=== PATIENT | male | born 1960 | race Caucasian/White ===

== ENCOUNTER 2020-11-04 02:50 | Inpatient (IN) | payer BC, SELFPAY ==
[2020-11-04] VITALS (14 sets, daily range): BP systolic 102–149; BP diastolic 64–87; PULSE 81–108; RESP 17–30; TEMP 36.2–37.2; O2SAT 89–98; BMI 32.1
--- NOTE | 2020-11-04 02:53 | CTR_ITS ---
PROCEDURE INFORMATION: Exam: CT Angiography Chest With Contrast Exam date and time: 11/04/2020 3:05 AM Age: 60 years old Clinical indication: Other: None; Abdominal pain; Localized; Right lower quadrant (rlq); Shortness of breath; Prior surgery; Surgery type: Lumbar; Patient HX: SOB with hypoxia. Lower and right sided abd pain. ; Additional info: Rlq pain TECHNIQUE: Imaging protocol: Computed tomographic angiography of the chest with contrast. 3D rendering (Not supervised by radiologist): MIP and/or 3D reconstructed images were created by the technologist. Radiation optimization: All CT scans at this facility use at least one of these dose optimization techniques: automated exposure control; mA and/or kV adjustment per patient size (includes targeted exams where dose is matched to clinical indication); or iterative reconstruction. Contrast material: VISI 320; Contrast volume: 95 ml; Contrast route: INTRAVENOUS (IV); COMPARISON: CR (CHEST, ) 11/04/2020 3:24 AM RADIATION DOSE METRICS: Total DLP (mGy-cm): 1722.16 FINDINGS: Pulmonary arteries: Normal. No pulmonary emboli. Aorta: Unremarkable. No aortic aneurysm. No aortic dissection. Lungs: Bilateral scattered ground-glass lung infiltrates are present. Pleural spaces: Unremarkable. No pneumothorax. No pleural effusion. Heart: Unremarkable. No cardiomegaly. No pericardial effusion. Lymph nodes: Unremarkable. No enlarged lymph nodes. Bones/joints: Degenerative changes are present. No acute fracture. Soft tissues: Unremarkable. IMPRESSION: 1. Negative for pulmonary embolism. Negative for aortic aneurysm or dissection. 2. Bilateral scattered ground-glass lung infiltrates are present. COVID-19 testing and follow-up is suggested. PROCEDURE INFORMATION: Exam: CT Abdomen And Pelvis With Contrast Exam date and time: 11/04/2020 3:05 AM Age: 60 years old Clinical indication: Other: None; Abdominal pain; Localized; Right lower quadrant (rlq); Shortness of breath; Prior surgery; Surgery type: Lumbar; Patient HX: SOB with hypoxia. Lower and right sided abd pain. ; Additional info: Rlq pain TECHNIQUE: Imaging protocol: Computed tomography of the abdomen and pelvis with contrast. Radiation optimization: All CT scans at this facility use at least one of these dose optimization techniques: automated exposure control; mA and/or kV adjustment per patient size (includes targeted exams where dose is matched to clinical indication); or iterative reconstruction. Contrast material: VISI 320; Contrast volume: 95 ml; Contrast route: INTRAVENOUS (IV); COMPARISON: CR (CHEST, ) 11/04/2020 3:24 AM RADIATION DOSE METRICS: Total DLP (mGy-cm): 1722.16 FINDINGS: Liver: Mild fatty change is present. No mass. Gallbladder and bile ducts: Normal. No calcified stones. No ductal dilation. Pancreas: Normal. No ductal dilation. Spleen: Normal. No splenomegaly. Adrenal glands: Normal. No mass. Kidneys and ureters: Normal. No hydronephrosis. Stomach and bowel: Unremarkable. No obstruction. Diverticulosis of the sigmoid colon is seen without diverticulitis. Appendix: No evidence of appendicitis. Intraperitoneal space: Unremarkable. No free air. No significant fluid collection. Vasculature: Calcifications are seen. No abdominal aortic aneurysm. Lymph nodes: Unremarkable. No enlarged lymph nodes. Urinary bladder: Unremarkable as visualized. Reproductive: Unremarkable as visualized. Bones/joints: Degenerative changes and postop changes are present. No acute fracture. Soft tissues: Unremarkable. CT/CT angio chest w abd pel w con IMPRESSION: 1. No acute findings. 2. Mild fatty change is present liver. 3. Diverticulosis of the sigmoid colon is present without diverticulitis. 4. Postop changes are seen in the lower lumbar spine . Radiation Dose CTDIVOL = (mGy): DLP = 1722.16 (mGy-cm)
[2020-11-04 03:06] LABS: Basophils % 0.3 %; Eosinophils % 0.3 %; Hematocrit 50.9 % (42.0-52.0); Hemoglobin 16.4 g/dL (11.7-16.6); Lymphocytes # 1.5 10^3/uL (0.8-4.8); Lymphocytes % 19.7 %; Mean Corpuscular HGB Conc 32.2 g/dL (30.0-36.0); Mean Corpuscular Hemoglobin 28.3 pg (28.0-34.0); Mean Corpuscular Volume 87.8 fL (80-94); Mean Platelet Volume 9.9 fL (7.4-10.4); Monocytes % 12.7 %; Neutrophils # 5.17 10^3/uL (1.8-7.7); Neutrophils % 66.5 %; Nucleated Red Blood Cells % 0 %; Platelet Count 161 10^3/cmm (130-400); Red Cell Distribution Width 13.9 % (12.1-15.1); White Blood Count 7.8 10^3/uL (4.0-10.0)
[2020-11-04] MEDS: sodium chloride 0.9% 1,000 ML 999 ML IV (03:13)
[2020-11-04] MEDS: HYDROmorphone 1 mg/mL INJ 1 mL IVP (03:16)
[2020-11-04] MEDS: ketorolac 30 mg/mL INJ IVP (03:16)
--- NOTE | 2020-11-04 03:22 | XRR_ITS ---
PROCEDURE INFORMATION: Exam: XR Chest Exam date and time: 11/04/2020 3:27 AM Age: 60 years old Clinical indication: Shortness of breath; Patient HX: SOB TECHNIQUE: Imaging protocol: XR of the chest Views: 1 view. COMPARISON: No relevant prior studies available. FINDINGS: Heterogenous infiltrates are seen in both lungs obscuring the left heart border. Small pleural effusions are seen, larger on the left. XR/XR chest 1V portable [id number] IMPRESSION: Bilateral heterogenous lung infiltrates are seen. COVID-19 testing and follow-up is suggested to see clearance.
[2020-11-04 03:24] LABS: Alanine Aminotransferase 25 U/L (0-41); Alkaline Phosphatase 92 IU/L (40-130); Anion Gap 16.2 (5-19); Aspartate Amino Transferase 19 U/L (0-40); Blood Urea Nitrogen 23 mg/dL (8-23); C Reactive Protein 102.6 mg/L (0.0-4.9); Calcium 8.5 mg/dL (8.5-10.5); Carbon Dioxide 25 mmol/L (22-29); Chloride 95 mmol/L (98-107); Globulin 3.6 g/dL (1.3-4.6); Glomerular Filtration Rate 61.3 mL/min (90-130); Glucose 154 mg/dL (65-115); Lipase 63 U/L (13-60); Osmolality Calculated 281 mOsm/kg (285-295); Potassium 4.2 mmol/L (3.5-5.1); Sodium 132 mmol/L (136-145); Total Bilirubin 0.3 mg/dL (0.15-1.2); Total Protein 7.6 g/dL (6.6-8.7)
[2020-11-04 03:25] LABS: Lactate (Lactic Acid level) 2.1 mmol/L (0.5-2.2)
--- NOTE | 2020-11-04 03:28 | W.ED.ABDPA2 ---
HPI - Abdominal Pain General: Chief Complaint: Abdominal Pain Stated Complaint: abd pain Time Seen by Provider: 11/04/20 02:52 History of Present Illness: HPI narrative: 60 -year-old gentleman with a history of right lower quadrant pain for last 3 to 4 days has been nauseated, but has not vomited. No hannah diarrhea, no blood in the stool. No fever. No overt belly surgery history. MD elicited complaint: abdominal pain Pertinent past history: kidney stones Onset (ago): day(s) Pain Consistency: intermittent Location: RLQ, LLQ and Other Severity: moderate Quality: cramping and stabbing Radiation: none Migration to: no migration Exacerbating factors: nothing Associated Symptoms: Denies coffee ground emesis, diarrhea, fever(s) and hematemesis Review of Systems Const: Denies: fever(s) Card: Denies: chest pain or palpitations Resp: Reports: dyspnea, productive cough and non-productive cough; Denies: wheezing GI: Denies: hematemesis, coffee ground emesis or diarrhea : Denies: flank pain or difficulty urinating Neuro: Denies: headache(s) Physical Exam Const: GENERAL APPEARANCE: well developed and ill appearing ORIENTATION/CONSCIOUSNESS: Yes oriented to person, Yes oriented to place and Yes oriented to time HENMT: COMMON NORMALS: normocephalic, external ears normal and Normal external nose present HEAD & SCALP: normocephalic FACE & SINUS: normal facial exam NOSE: Normal external nose present and No nasal discharge present EXTERNAL EAR: Yes external ears normal MOUTH: tongue normal TEETH & GINGIVA: no abnormal tooth and associated gingiva THROAT: posterior oropharynx normal; no peritonsillar mass Eye: COMMON NORMALS: EOMs intact bilaterally and conjunctivae normal EYELID: eyelids normal CONJUNCTIVA: Yes conjunctivae normal Neck/C-Spine: GENERAL: No tracheal deviation Chest: COMMONS NORMALS: normal inspection of the chest CHEST: No tenderness Resp: COMMON NORMALS: clear to auscultation bilaterally EFFORT & INSPECTION: Yes tachypneic, Yes respiratory distress, No retractions, Yes uses accessory muscles and No tracheal deviation AUSCULTATION: clear to auscultation bilaterally, no rhonchi, no wheezes and diminished lung sounds Cardio: COMMON NORMALS: regular rhythm RATE: tachycardic RHYTHM: regular rhythm HEART SOUNDS: no murmurs PERIPHERAL PULSES: radial pulses present GI: INSPECTION: No abdominal distension AUSCULTATION: No Hyperactive bowel sounds present and No Hypoactive bowel sounds present PALPATION: Yes Tenderness to palpation present (GI) Details: RLQ, Yes Guarding due to palpation present (GI), No Rigid due to palpation and Yes Abdominal wall crepitus present PERCUSSION: no dullness to percussion and no tympanic to percussion : COMMON NORMALS: Yes no CVA tenderness BLADDER/KIDNEY EXAM: Yes no CVA tenderness Back/Pelvis: COMMON NORMALS: no CVA tenderness Neuro: SENSORIUM/ORIENTATION: Yes oriented to person, Yes oriented to place and Yes oriented to time Psych: COMMON NORMALS: mental status grossly normal Skin: COMMON NORMALS: no rashes or lesions noted GENERAL SKIN EXAM: no rashes or lesions noted Course Consultations: Consultation #1: willy Vital Signs: Vital signs: Vital Signs Temperature 98.9 F 11/04/20 02:51 Pulse Rate 90 11/04/20 04:39 Respiratory Rate 19 H 11/04/20 04:39 Blood Pressure 120/74 11/04/20 04:39 Pulse Oximetry 92 11/04/20 04:39 MDM - Abdominal Pain MDM Narrative: Medical decision making narrative: 60-year-old gentleman complains mainly of right lower quadrant and more diffuse belly pain, he is also been coughing and congested. He may or may not have had a fever at home. He denies being short of breath. Despite this, he has a significant oxygen demand satting 92% on 2 L nasal cannula. His chest x-ray revealed interstitial infiltrates and enlarged heart. Because of this, CTA was ordered with follow-through to the abdomen and pelvis. His white blood count is 7.8. Hemoglobin 16. His CRP is significantly elevated. Other laboratory is essentially benign. CTA shows no pulmonary embolus, but groundglass infiltrates are present. His rapid Covid is pending. Belly shows no significant acute findings. Patient returned from CT scan, more short of breath. He is placed on 4 L. He is mildly hypotensive at 92/52. He does not usually use oxygen. He will be admitted. Patient is COVID-19 positive. Lab Data: Labs: Lab Results 11/04/20 11/04/20 11/04/20 Range/Units 02:57 02:57 02:57 WBC 7.8 (4.0-10.0) 10^3/ uL RBC 5.80 H (4.1-5.3) 10^6/u L Hgb 16.4 (11.7-16.6) g/dL Hct 50.9 (42.0-52.0) % MCV 87.8 (80-94) fL MCH 28.3 (28.0-34.0) pg MCHC 32.2 (30.0-36.0) g/dL RDW 13.9 (12.1-15.1) % Plt Count 161 (130-400) 10^3/c mm MPV 9.9 (7.4-10.4) fL Neut % (Auto) 66.5 % Lymph % (Auto) 19.7 % [place] % (Auto) 12.7 % Eos % (Auto) 0.3 % Baso % (Auto) 0.3 % Neut # (Auto) 5.17 (1.8-7.7) 10^3/u L Lymph # (Auto) 1.5 (0.8-4.8) 10^3/u L [place] # (Auto) 1.0 H (0.2-0.9) 10^3/u L Eos # (Auto) 0.0 (0.0-0.8) 10^3/u L Baso # (Auto) 0.0 (0.0-0.1) 10^3/u L Nucleated RBC % (a uto) 0 % Nucleated RBCs # 0.0 /100WBC Specimen Type Sample Site ABG pH (7.35-7.45) ABG pCO2 (35-45) mmHg ABG pO2 (80.0-100.0) mmH g ABG HCO3 (22-26) mmol/L ABG Base Excess (-2.0-2.0) mmol/ L Mohinder Test Hematocrit (42-52) % O2 Delivery Device O2 Liters/Min % Operations Support Analyst ID Sodium 132 L (136-145) mmol/L Potassium 4.2 (3.5-5.1) mmol/L Chloride 95 L (98-107) mmol/L Carbon Dioxide 25 (22-29) mmol/L Anion Gap 16.2 (5-19) BUN 23 (8-23) mg/dL Creatinine 1.2 (0.7-1.2) mg/dL GFR Calculation 61.3 L (90-130) mL/min Glucose 154 H (65-115) mg/dL Calculated Osmolal ity 281 L (285-295) mOsm/k g Lactate 2.1 (0.5-2.2) mmol/L Calcium 8.5 (8.5-10.5) mg/dL Total Bilirubin 0.3 (0.15-1.2) mg/dL AST 19 (0-40) U/L ALT 25 (0-41) U/L Alkaline Phosphata se 92 (40-130) IU/L Troponin T Baselin e (0-15) ng/L C-Reactive Protein 102.6 H (0.0-4.9) mg/L NT-Pro-B Natriuret Pep (0-125) pg/mL Total Protein 7.6 (6.6-8.7) g/dL Albumin 4.0 (3.5-5.2) g/dL Globulin 3.6 (1.3-4.6) g/dL Lipase 63 H (13-60) U/L Procalcitonin (0-0.5) ng/mL Urine Color (Yellow) Urine Appearance (CLEAR) Urine pH (5-7) Ur Specific Gravit y (1.005-1.030) Urine Protein (Negative) Urine Glucose (UA) (Normal) Urine Ketones (Negative) Urine Blood (Negative) Urine Nitrate (Negative) Urine Bilirubin (Negative) Urine Urobilinogen (Negative) mg/dL Ur Leukocyte Kandis ase (Negative) Urine RBC (0-2) /hpf Urine WBC (0-5) /hpf Ur Squamous Epith Cells (0-5) /hpf Amorphous Sediment Urine Bacteria (NONE) /hpf Hyaline Casts /lpf SARS-CoV-2 Ag (Rap id) (Negative) 11/04/20 11/04/20 11/04/20 Range/Units 02:57 02:57 04:41 WBC (4.0-10.0) 10^3/ uL RBC (4.1-5.3) 10^6/u L Hgb (11.7-16.6) g/dL Hct (42.0-52.0) % MCV (80-94) fL MCH (28.0-34.0) pg MCHC (30.0-36.0) g/dL RDW (12.1-15.1) % Plt Count (130-400) 10^3/c mm MPV (7.4-10.4) fL Neut % (Auto) % Lymph % (Auto) % [place] % (Auto) % Eos % (Auto) % Baso % (Auto) % Neut # (Auto) (1.8-7.7) 10^3/u L Lymph # (Auto) (0.8-4.8) 10^3/u L [place] # (Auto) (0.2-0.9) 10^3/u L Eos # (Auto) (0.0-0.8) 10^3/u L Baso # (Auto) (0.0-0.1) 10^3/u L Nucleated RBC % (a uto) % Nucleated RBCs # /100WBC Specimen Type Sample Site ABG pH (7.35-7.45) ABG pCO2 (35-45) mmHg ABG pO2 (80.0-100.0) mmH g ABG HCO3 (22-26) mmol/L ABG Base Excess (-2.0-2.0) mmol/ L Mohinder Test Hematocrit (42-52) % O2 Delivery Device O2 Liters/Min % Operations Support Analyst ID Sodium (136-145) mmol/L Potassium (3.5-5.1) mmol/L Chloride (98-107) mmol/L Carbon Dioxide (22-29) mmol/L Anion Gap (5-19) BUN (8-23) mg/dL Creatinine (0.7-1.2) mg/dL GFR Calculation (90-130) mL/min Glucose (65-115) mg/dL Calculated Osmolal ity (285-295) mOsm/k g Lactate (0.5-2.2) mmol/L Calcium (8.5-10.5) mg/dL Total Bilirubin (0.15-1.2) mg/dL AST (0-40) U/L ALT (0-41) U/L Alkaline Phosphata se (40-130) IU/L Troponin T Baselin e 15 (0-15) ng/L C-Reactive Protein (0.0-4.9) mg/L NT-Pro-B Natriuret Pep 19 (0-125) pg/mL Total Protein (6.6-8.7) g/dL Albumin (3.5-5.2) g/dL Globulin (1.3-4.6) g/dL Lipase (13-60) U/L Procalcitonin 0.16 (0-0.5) ng/mL Urine Color Yellow (Yellow) Urine Appearance Clear (CLEAR) Urine pH 5 (5-7) Ur Specific Gravit y 1.020 (1.005-1.030) Urine Protein Trace (Negative) Urine Glucose (UA) 4+ H (Normal) Urine Ketones Negative (Negative) Urine Blood 2+ H (Negative) Urine Nitrate Negative (Negative) Urine Bilirubin Neg (Negative) Urine Urobilinogen Norm (Negative) mg/dL Ur Leukocyte Kandis ase Negative (Negative) Urine RBC 5-10 H (0-2) /hpf Urine WBC 0-4 H (0-5) /hpf Ur Squamous Epith Cells 0-4 H (0-5) /hpf Amorphous Sediment Not Reportable Urine Bacteria Trace (NONE) /hpf Hyaline Casts 0-4 H /lpf SARS-CoV-2 Ag (Rap id) (Negative) 11/04/20 11/04/20 Range/Units 04:51 05:43 WBC (4.0-10.0) 10^3/ uL RBC (4.1-5.3) 10^6/u L Hgb (11.7-16.6) g/dL Hct (42.0-52.0) % MCV (80-94) fL MCH (28.0-34.0) pg MCHC (30.0-36.0) g/dL RDW (12.1-15.1) % Plt Count (130-400) 10^3/c mm MPV (7.4-10.4) fL Neut % (Auto) % Lymph % (Auto) % [place] % (Auto) % Eos % (Auto) % Baso % (Auto) % Neut # (Auto) (1.8-7.7) 10^3/u L Lymph # (Auto) (0.8-4.8) 10^3/u L [place] # (Auto) (0.2-0.9) 10^3/u L Eos # (Auto) (0.0-0.8) 10^3/u L Baso # (Auto) (0.0-0.1) 10^3/u L Nucleated RBC % (a uto) % Nucleated RBCs # /100WBC Specimen Type Arterial Sample Site Brachial, right ABG pH 7.37 (7.35-7.45) ABG pCO2 38.8 (35-45) mmHg ABG pO2 99.9 (80.0-100.0) mmH g ABG HCO3 22.2 (22-26) mmol/L ABG Base Excess -2.8 L (-2.0-2.0) mmol/ L Mohinder Test N/a Hematocrit 45.1 (42-52) % O2 Delivery Device Nc O2 Liters/Min 4.0 % Operations Support Analyst ID Harkr Sodium (136-145) mmol/L Potassium (3.5-5.1) mmol/L Chloride (98-107) mmol/L Carbon Dioxide (22-29) mmol/L Anion Gap (5-19) BUN (8-23) mg/dL Creatinine (0.7-1.2) mg/dL GFR Calculation (90-130) mL/min Glucose (65-115) mg/dL Calculated Osmolal ity (285-295) mOsm/k g Lactate (0.5-2.2) mmol/L Calcium (8.5-10.5) mg/dL Total Bilirubin (0.15-1.2) mg/dL AST (0-40) U/L ALT (0-41) U/L Alkaline Phosphata se (40-130) IU/L Troponin T Baselin e (0-15) ng/L C-Reactive Protein (0.0-4.9) mg/L NT-Pro-B Natriuret Pep (0-125) pg/mL Total Protein (6.6-8.7) g/dL Albumin (3.5-5.2) g/dL Globulin (1.3-4.6) g/dL Lipase (13-60) U/L Procalcitonin (0-0.5) ng/mL Urine Color (Yellow) Urine Appearance (CLEAR) Urine pH (5-7) Ur Specific Gravit y (1.005-1.030) Urine Protein (Negative) Urine Glucose (UA) (Normal) Urine Ketones (Negative) Urine Blood (Negative) Urine Nitrate (Negative) Urine Bilirubin (Negative) Urine Urobilinogen (Negative) mg/dL Ur Leukocyte Kandis ase (Negative) Urine RBC (0-2) /hpf Urine WBC (0-5) /hpf Ur Squamous Epith Cells (0-5) /hpf Amorphous Sediment Urine Bacteria (NONE) /hpf Hyaline Casts /lpf SARS-CoV-2 Ag (Rap id) Positive H (Negative) Discharge Plan Discharge Patient Disposition: Admitted As Inpatient Clinical Impression: COVID-19 Respiratory failure with hypoxia Qualifiers: Chronicity: acute Qualified Code(s): J96.01 - Acute respiratory failure with hypoxia Condition: Stable Coding Level of Care Code ED French Folder for g Fwd Exam Comprehensive
--- NOTE | 2020-11-04 03:35 | ECG_ITS ---
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 Measurements Intervals [place] Rate: 90 P: 29 NE: 178 QRS: 90 QRSD: 91 T: 61 QT: 337 QTc: 413 Interpretive Statements SINUS RHYTHM POSSIBLE ANTERIOR MYOCARDIAL INFARCTION , PROBABLY OLD [30 ms Q WAVE IN V3/V4, OR R < 0.2 mV IN V4] No previous ECG available for comparison Electronically Signed On 11-06-2020 18:57:12 AUTOMOBILE GLASS TECHNICIAN by Irineo Chance M.D. [id number] f
[2020-11-04] MEDS: iodixanol 320 mg/mL 100mL Btl IV (03:43)
[2020-11-04] MEDS: HYDROmorphone 1 mg/mL INJ 1 mL 0.5 MG IVP (04:54)
[2020-11-04] MEDS: dexamethasone 10 mg/mL INJ IVP (04:55)
[2020-11-04 05:02] LABS: Troponin(5th) Baseline 15 ng/L (0-15)
[2020-11-04 05:12] LABS: NT Pro B Type Natriuretic Pept 19 pg/mL (0-125); Procalcitonin 0.16 ng/mL (0-0.5)
[2020-11-04 05:12] LABS: Add Urine Microscopic? YES; Bilirubin Urine Neg (Negative); Blood Urine 2+ (Negative); Glucose Urine UA 4+ (Normal); Ketones Urine Negative (Negative); Leukocyte Esterase Urine Negative (Negative); Nitrate Urine Negative (Negative); Protein Urine Trace (Negative); Urine Appearance Clear (CLEAR); Urine Color Yellow (Yellow); Urobilinogen Urine Norm (Negative); pH Urine 5 (5-7)
[2020-11-04 05:13] LABS: WBC Urine 0-4 /hpf (0-5)
[2020-11-04 05:14] LABS: Add Urine Culture? No; Bacteria Urine TRACE /hpf; Hyaline Casts Urine 0-4 /lpf; Squamous Epithelial Cell Urine 0-4 /hpf (0-5)
--- NOTE | 2020-11-04 05:35 | ECG_ITS ---
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 Measurements Intervals [place] Rate: 77 P: 40 MD: 189 QRS: 85 QRSD: 93 T: 59 QT: 361 QTc: 410 Interpretive Statements SINUS RHYTHM Compared to ECG 11/04/2020 03:55:44 Myocardial infarct finding no longer present Electronically Signed On 11-06-2020 19:05:02 AUTO DAMAGE ADJUSTER by Irineo Chance M.D. [id number] f
--- NOTE | 2020-11-04 05:36 | PM.HP ---
Providers/Chief Complaint Chief Complaint: abd pain History of Present Illness dolores pearl is a 60 year old male who has an past medical history presented today with chief complaint of abdominal pain. Patient is stating that for last few days he has been experiencing constipation, for which she has seen PCP who recommended stool softeners, now he was experiencing loose stools for quite some days and his abdominal pain was getting worse vascular he decided to come to the hospital. He is denying fever, chest pain, productive cough however endorsing shortness of breath at rest and on exertion. He lives with his who does not have similar symptoms. He does not smoke or drink alcohol. Diagnostics in the ER revealed acute hypoxic respiratory failure requiring 4 L nasal cannula to keep O2 saturation 92%, no active chest pain, CBC unremarkable, BMP without significant acute abnormalities, high CRP noted, CTA ruled out PE, chest imaging showed bilateral groundglass opacities, CT abdomen revealed diverticulosis without any infectious cause, ABGs pending When I evaluated him he was eating sandwich was saturating well on 4 L nasal cannula had mild conversational dyspnea. Food was not aggravating his pain. Review of Systems Const: Reports: body aches and fatigue; Denies: fever(s) Eyes: Denies: change in vision ENMT: Denies: throat pain Card: Denies: chest pain Resp: Reports: dyspnea GI: Reports: abdominal pain and constipation; Denies: nausea or vomiting : Denies: flank pain Musc: Denies: neck pain Skin/Breast: Denies: rash Neuro: Denies: headache(s) Psych: Denies: anxiety Endo: Denies: polyuria Christopher/Lymph: Denies: easy bruising All/Imm: Denies: urticaria Medications/Allergies Allergies Allergy/AdvReac Type Severity Reaction Status Date / Time No Known Allergies Allergy Verified 11/04/20 02:55 PFSH Acute PFSH: Medical History Dyslipidemia Hypertension Normal colonoscopy Type 2 diabetes mellitus Surgical History Previous back surgery Family History Other Family history non-contributory Social History Smoking and tobacco status: never smoked Alcohol intake: never Substance/Drug Use: never Household members: spouse Housing: House Vitals/I&O/Wt Last Vital Signs Temp 98.9 F 11/04/20 02:51 Pulse 90 11/04/20 04:39 Resp 19 H 11/04/20 04:39 BP 120/74 11/04/20 04:39 Pulse Ox 92 11/04/20 04:39 11/03/20 11/03/20 11/04/20 14:59 22:59 06:59 Intake Total 1000 / 1000 Balance 1000 / 1000 Weight last 48 hrs Weight 107.501 kg Physical Exam Narrative: EXAM NARRATIVE: Middle-age male currently saturating well on 4 L nasal cannula No active chest pain or acute shortness of breath Appears stated age, He was eating sandwich when I entered the room S1, S2 no murmur appreciated no signs of heart failure Bilateral breath sounds with mild crackles at the bases Abdomen soft bowel sounds hyperactive No extremity no edema No neurological deficit noted GCS 15 awake alert oriented x3 No joint pain or swelling Appropriate mood and affect EOMI, PERRLA Data : 11/04/20 02:57 11/04/20 02:57 A&P Assessment and plan (1) COVID-19: Acute hypoxic respiratory failure due to COVID-19 pneumonia Groundglass opacities, procalcitonin unremarkable, Start him on Decadron and remdesivir Albuterol treatment Recheck inflammatory markers tomorrow for prognostication COVID-19 isolation Status: Acute (2) Respiratory failure with hypoxia: PE ruled out, secondary to COVID-19, management as mentioned above Check BNP, no active chest pain, Status: Acute Qualifiers: Chronicity: acute Qualified Code(s): J96.01 - Acute respiratory failure with hypoxia Additional A&P Information History of hypertension: Currently normotensive, monitor blood pressure for now Type 2 diabetes: We will keep him on moderate sliding scale along consistent carb diet Full code Consistent carb diet DVT prophylaxis Attestations Medical Necessity Statement*: Anticipating stay in the hospital course more than 2 midnights for acute hypoxic respiratory failure, COVID-19 Time Spent in Patient Care: (>than 50% of time spent in counselling and/or direct pt care on unit). 35 Coding Level of Care Code Acute Sales Support Representative for [facility] Fwd Diagnoses COVID-19 U07.1 Respiratory failure with hypoxia J96.01 Chronicity: acute
[2020-11-04 05:40] LABS: SARS Covid-2 Antigen Positive (Negative)
[2020-11-04 05:53] LABS: ABG PCO2 38.8 mmHg (35-45); ABG PH Result 7.37 (7.35-7.45); Arterial Blood Gas Hematocrit 45.1 % (42-52); Base Excess ABG -2.8 mmol/L (-2.0-2.0); Blood Gas Operator Identificat HARKR; Blood Gas Sample Site Brachial, right; Blood Gas Sample Type Arterial; HCO3 ABG 22.2 mmol/L (22-26); Oxygen Device NC; PO2 ABG 99.9 mmHg (80.0-100.0)
[2020-11-04 07:17] LABS: Glucose Point of Care 192 mg/dL (70-110)
--- NOTE | 2020-11-04 08:59 | USCV_ITS ---
dolores pearl Age: 60 Gender: M : 1960 Exam Date: 11/04/2020 10:46 Ordering Phys: Jag Werner MD Technologist: Tara Keller Exam Location: [facility] [place] Indication: SOB BP: 129 / 79 HR: 73 Rhythm: Sinus Technical Quality: Fair MEASUREMENTS (Male / Female) Normal Values 2D ECHO LV Diastolic Diameter PLAX 4.8 cm 4.2 - 5.9 / 3.9 - 5.3 cm LV Systolic Diameter PLAX 2.8 cm LV Chamber Size 5.5 cm IVS Diastolic Thickness 1.5 cm 0.6 - 1.0 / 0.6 - 0.9 cm IVS Systolic Thickness 1.9 cm LVPW Diastolic Thickness 1.0 cm 0.6 - 1.0 / 0.6 - 0.9 cm LVPW Systolic Thickness 2.2 cm RV Chamber Size 3.6 cm LVOT Diameter 2.1 cm LV Ejection Fraction 2D Teich 73.3 % LV Ejection Fraction MOD 2C 63.1 % LV Ejection Fraction 2C AL 65.3 % LA Diameter 2.5 cm LA Width 3.1 cm LA Height 6.2 cm RA Width 3.1 cm RA Height 4.8 cm Aorta at Sinotubular Diameter 2.9 cm M-MODE LV Diastolic Diameter MM 4.6 cm 4.2 - 5.9 / 3.9 - 5.3 cm LV Systolic Diameter MM 2.7 cm LV Ejection Fraction MM Teich 71.1 % IVS Diastolic Thickness MM 1.7 cm 0.6 - 1.0 / 0.6 - 0.9 cm IVS Systolic Thickness MM 1.9 cm LVPW Diastolic Thickness MM 1.4 cm 0.6 - 1.0 / 0.6 - 0.9 cm LVPW Systolic Thickness MM 2.1 cm RV Diastolic Diameter MM 0.9 cm Aortic Annulus Diameter 3.8 cm LA Ao Ratio MM 0.8 MV E Point Septal Separation 0.6 cm DOPPLER AV Peak Velocity 126.0 cm/s LVOT Peak Velocity 90.0 cm/s AV Area Cont Eq vti 2.7 cm squared AV Area Cont Eq pk 2.4 cm squared MV Area PHT 4.4 cm squared Mitral E to A Ratio 1.1 MV E' Velocity 47.0 cm/s Mitral E to MV E' Ratio 17.9 Mitral E to LV E' Lateral Ratio 16.2 Mitral E to LV E' Septal Ratio 19.8 TR Peak Velocity 173.0 cm/s TR Peak Gradient 12.0 mmHg TV Peak E Velocity 50.0 cm/s Right Atrial Pressure 15.0 mmHg Pulmonary Artery Systolic Pressu 27.0 mmHg PV Peak Velocity 60.0 cm/s RV Acceleration Time 0.1 s RV Ejection Time 0.3 s RV AcT/ET 0.3 FINDINGS Left Ventricle Normal left ventricular size and systolic function with no regional wall motion abnormalities. LVEF is 55-60%. Grade II diastolic dysfunction. Right Ventricle The right ventricle is normal in size and function. Right Atrium The right atrium is normal in size. Left Atrium The left atrium is normal in size. Mitral Valve Structurally normal mitral valve without significant stenosis or prolapse. There is no mitral regurgitation. Aortic Valve Structurally normal aortic valve without significant sclerosis or stenosis. There is no aortic regurgitation. Tricuspid Valve Structurally normal tricuspid valve without significant stenosis. Trace tricuspid regurgitation. Insufficient TR jet to calculate RVSP. Pulmonic Valve Structurally normal pulmonic valve without significant stenosis. There is mild pulmonic regurgitation. Pericardium Normal pericardium without effusion. Aorta Normal ascending aorta dimension. CONCLUSIONS LV systolic function is normal with EF of 55-60% Grade II diastolic dysfunction Trace tricuspid regurgitation, mild pulmonic regurgitation No comparison studies are available Irineo Chance MD (Electronically Signed) Final Date: 04 November 2020 17:01 S
[2020-11-04] MEDS: enoxaparin 40 mg/0.4 mL Syringe SUBCUT (09:21)
[2020-11-04] MEDS: dexamethasone 4 mg Tablet 6 MG PO (09:22)
[2020-11-04] MEDS: cholecalciferol (vitamin D3) 5,000 unit Tablet 5000 UNIT PO (09:23)
[2020-11-04] MEDS: ascorbic acid 500 mg Tablet 1000 MG PO ×2 (09:23→17:27)
[2020-11-04] MEDS: zinc gluconate 50 mg Tablet PO (09:23)
--- NOTE | 2020-11-04 09:35 | ECG_ITS ---
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 Measurements Intervals Whitman Rate: 84 P: 14 DE: 185 QRS: 12 QRSD: 97 T: 53 QT: 354 QTc: 419 Interpretive Statements SINUS RHYTHM POSSIBLE ANTERIOR MYOCARDIAL INFARCTION [30 ms Q WAVE IN V3/V4, OR R < 0.2 mV IN V4], OF INDETERMINATE AGE WARNING: DATA QUALITY MAY AFFECT INTERPRETATION Compared to ECG 11/04/2020 06:30:30 Myocardial infarct finding now present Electronically Signed On 11-04-2020 11:23:06 CASHIER TUBE ROOM by Raeann Russ M.D. [id number]
[2020-11-04] MEDS: HYDROcodone-acetaminophen 5-325 mg Tablet 1 TAB PO (09:42)
[2020-11-04 10:01] LABS: Troponin 5 2HR Delta -1.7 ABS# (0-10)
[2020-11-04 11:38] LABS: Glucose Point of Care 277 mg/dL (70-110)
[2020-11-04 11:43] LABS: Troponin 5 6HR 12.41 ng/L (0-15)
--- NOTE | 2020-11-04 13:21 | PC.CHAP ---
Pastoral Care Encounter/Spiritual Assessment Type of Contact [] Declined header dock visit [] Patient/Family/Request visit [] Outpatient visit [] Follow-up visit [] Physician referral [] Code/Alert [X] Routine visit [] Staff referral [] Actively dying [] Patient sleeping [] Family support [] [] Out of room [] Palliative care [] [] Receiving care in room [] Pre-surgical visit [] Trauma [] Long length of stay [] ICU visit [] Other: Relational/Emotional Strength [] Patient feels connected with others/family/visitors/staff [] Distress [] Loneliness/isolation [] Abandonment Spirituality of Patient [] Person of Milena [] Attends Hoahaoism of their Milena [] Believes in Prayer [] Reads Bible or Rastafari materials [] There are Spiritual issues to be addressed Medical Cash Poster Interventions [] Prayer [] Active listening [] Non-anxious presence [] Spiritual/emotional support [] Crisis/trauma care [] Spiritual counseling [] Bereavement support [] Provided bereavement packet [] Provided Bible/devotional materials [] Provided toy/stuffed animal, coloring book to patient or family member [] Provided Communion [] Anointing/[place] [] Salvation [] Completed spiritual assessment [] Other: Impact on Illness or Injury [] Angry [] Fearful [] Anxious [] Often cries [] Exhaustion [] Unable to work [] Unable to attend moravian [] Unable to walk/stand [] Unable to read [] Unable to drive [] Unable to eat/drink [] Unable to sleep [] Unable to be with family [] Patient intubated [] Other: Summary Time spent with patient
[2020-11-04] MEDS: remdesivir 200 MG in sodium chloride 0.9% (100 ml) 100 ML 100 MG IV (15:47)
[2020-11-04 17:01] LABS: Troponin 5 6HR Delta -2.59 ng/L (0-12)
--- NOTE | 2020-11-04 17:06 | PM.PN ---
Subjective Subjective: Interval history: Stable since admission, no fever, or chills. oxygen sat stable on 4L via [place] Vitals/I&O/Wt Last Vital Signs Temp 97.8 F 11/04/20 16:46 Pulse 81 11/04/20 16:46 Resp 17 11/04/20 16:46 BP 125/73 11/04/20 16:46 Pulse Ox 94 11/04/20 16:46 11/04/20 11/04/20 11/04/20 06:59 14:59 22:59 Intake Total 1000 / 1000 480 / 480 Balance 1000 / 1000 480 / 480 Weight last 48 hrs Weight 107.501 kg Physical Exam Narrative: EXAM NARRATIVE: General-NAD on via [place] HEENT-grossly unremarkable CVS-regular rate rhythm Chest-clear to auscultation bilaterally Uldbute-yot-fbtbso Extremities-no lower extremity edema Neuro-which grossly unremarkable Psych-cooperative Data : 11/04/20 02:57 11/04/20 02:57 A&P Assessment and plan (1) COVID-19: Acute hypoxic respiratory failure due to COVID-19 pneumonia Groundglass opacities, procalcitonin unremarkable, Continue on Decadron and remdesivir Albuterol treatment COVID-19 isolation Ferritin, dimer, crp in am Status: Acute (2) Respiratory failure with hypoxia: PE ruled out, secondary to COVID-19, management as mentioned above Wean oxygen as tolerated Neb tx Home o2 eval prior to discharge Status: Acute Qualifiers: Chronicity: acute Qualified Code(s): J96.01 - Acute respiratory failure with hypoxia Additional A&P Information History of hypertension - Continue current management Type 2 diabetes: - Sliding scale insulin - Diabetic diet - ACHS BS checks Full code DVT prophylaxis Attestations Medical Necessity Statement*: Continue hospitalization for management of Hypoxic respiratory failure, COVID-19 pneumonia Time Spent in Patient Care: Greater than 35 minutes Coding Level of Care Code 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
[2020-11-04 17:08] LABS: Glucose Point of Care 205 mg/dL (70-110)
[2020-11-04] MEDS: oxyCODONE 5 mg IR Tab/Cap PO (21:24)
[2020-11-04] MEDS: lidocaine 2% viscous 15 ML, aluminum-mag hydrox-simethicon 30 ML, sucralfate oral liq 1 GM PO (21:32)
[2020-11-04] MEDS: trazodone 100 mg Tablet PO (22:09)
[2020-11-04 23:10] LABS: Glucose Point of Care 284 mg/dL (70-110)
[2020-11-05] VITALS (11 sets, daily range): BP systolic 115–143; BP diastolic 72–79; PULSE 71–89; RESP 17–21; TEMP 36.5–37.2; O2SAT 92–95
[2020-11-05 05:01] LABS: Basophils % 0.1 %; Hematocrit 43.5 % (42.0-52.0); Hemoglobin 14.4 g/dL (11.7-16.6); Lymphocytes # 1.1 10^3/uL (0.8-4.8); Lymphocytes % 16.5 %; Mean Corpuscular HGB Conc 33.1 g/dL (30.0-36.0); Mean Corpuscular Hemoglobin 28.5 pg (28.0-34.0); Mean Platelet Volume 9.8 fL (7.4-10.4); Monocytes # 0.7 10^3/uL (0.2-0.9); Monocytes % 10.7 %; Neutrophils # 4.87 10^3/uL (1.8-7.7); Neutrophils % 72.4 %; Nucleated Red Blood Cells % 0 %; Platelet Count 153 10^3/cmm (130-400); Red Blood Count 5.06 10^6/uL (4.1-5.3); Red Cell Distribution Width 13.5 % (12.1-15.1); White Blood Count 6.7 10^3/uL (4.0-10.0)
[2020-11-05 05:24] LABS: D Dimer 0.74 ug/mIFEU (0-0.59)
[2020-11-05 05:52] LABS: Alanine Aminotransferase 20 U/L (0-41); Albumin Level 3.5 g/dL (3.5-5.2); Alkaline Phosphatase 79 IU/L (40-130); Anion Gap 14.8 (5-19); Aspartate Amino Transferase 18 U/L (0-40); Blood Urea Nitrogen 19 mg/dL (8-23); C Reactive Protein 51.2 mg/L (0.0-4.9); Calcium 8.6 mg/dL (8.5-10.5); Carbon Dioxide 22 mmol/L (22-29); Chloride 99 mmol/L (98-107); Globulin 3.1 g/dL (1.3-4.6); Glomerular Filtration Rate 114.3 mL/min (90-130); Glucose 193 mg/dL (65-115); Lactate Dehydrogenase 258 U/L (135-225); Osmolality Calculated 280 mOsm/kg (285-295); Potassium 4.8 mmol/L (3.5-5.1); Sodium 131 mmol/L (136-145); Total Bilirubin 0.2 mg/dL (0.15-1.2); Total Protein 6.6 g/dL (6.6-8.7)
--- NOTE | 2020-11-05 07:18 | PC.NURSE ---
patient has no pain meds ordered. patient had a one time oxy IR and one time hydrocodone last night. Notified Dr Werner and requesting something for pain.
--- NOTE | 2020-11-05 08:10 | PC.NURSE ---
Dr. Werner notified pt is requesting pain medication.
--- NOTE | 2020-11-05 08:21 | PC.NURSE ---
Order for Morphine received from Dr Werner for pain. BRYANT Hardin entered order
[2020-11-05] MEDS: dexamethasone 4 mg Tablet 6 MG PO (08:36)
[2020-11-05] MEDS: enoxaparin 40 mg/0.4 mL Syringe SUBCUT (08:36)
[2020-11-05] MEDS: ascorbic acid 500 mg Tablet 1000 MG PO ×2 (08:36→17:34)
[2020-11-05] MEDS: cholecalciferol (vitamin D3) 5,000 unit Tablet 5000 UNIT PO (08:36)
[2020-11-05] MEDS: zinc gluconate 50 mg Tablet PO (08:36)
[2020-11-05] MEDS: morphine 4 mg/mL SDV 1 mL 1 MG IVP (08:37)
[2020-11-05] MEDS: HYDROcodone-acetaminophen 5-325 mg Tablet 1 TAB PO ×3 (12:13→21:03)
--- NOTE | 2020-11-05 12:20 | PC.NURSE ---
pt stated that his blood sugar was checked by the TRANSITION MGR and it was 263. The blood sugar results did not transfer into the computer system. insulin dosed based on blood sugar of 263.
--- NOTE | 2020-11-05 12:20 | PC.NURSE ---
blood sugar was checked by RONI Jasmine. she told continuity writer blood sugar was 263. Blood sugar is not registering in computer. continuity writer went to patient's room and scanned patient's ID band. It scanned fine. patient said she just checked my blood sugar and it was 263. continuity writer explained I was trying to see why it wouldn't show up in the computer. Patient said the MACHINE SETUP OPERATOR didn't scan my bracelet when she checked by blood sugar a few minutes ago.
[2020-11-05] MEDS: albuterol 8 gm MDI 2 PUFF INHALATION ×2 (15:04→20:23)
[2020-11-05] MEDS: magnesium hydroxide 30 mL UDC PO (15:11)
--- NOTE | 2020-11-05 16:08 | PM.PN ---
Subjective Subjective: Interval history: no new clinical events overnight. Patients O2 saturations remained stable. Was weaned to 3 L O2 via nasal cannula. No new complaints. Medications: Reviewed: Yes Vitals/I&O/Wt Last Vital Signs Temp 97.7 F 11/05/20 11:44 Pulse 77 11/05/20 15:07 Resp 18 11/05/20 15:07 BP 132/78 11/05/20 11:44 Pulse Ox 94 11/05/20 15:07 11/05/20 11/05/20 11/05/20 06:59 14:59 22:59 Intake Total 120 / 940 240 / 240 Balance 120 / 940 240 / 240 Weight last 48 hrs Weight 107.501 kg Physical Exam Narrative: EXAM NARRATIVE: General-NAD on via [place] HEENT-grossly unremarkable CVS-regular rate rhythm Chest-clear to auscultation bilaterally Fmwfque-zwa-vdkzfu Extremities-no lower extremity edema Neuro-which grossly unremarkable Psych-cooperative Data : 11/05/20 04:20 11/05/20 04:20 A&P Assessment and plan (1) COVID-19: Acute hypoxic respiratory failure due to COVID-19 pneumonia Groundglass opacities, procalcitonin unremarkable, Continue on Decadron and remdesivir Albuterol treatment COVID-19 isolation Ferritin, dimer, crp in am Home o2 eval at discharge. Status: Acute (2) Respiratory failure with hypoxia: PE ruled out, secondary to COVID-19, management as mentioned above Wean oxygen as tolerated Neb tx Home o2 eval prior to discharge Status: Acute Qualifiers: Chronicity: acute Qualified Code(s): J96.01 - Acute respiratory failure with hypoxia Additional A&P Information History of hypertension - Continue current management Type 2 diabetes: - Sliding scale insulin - Diabetic diet - ACHS BS checks Full code DVT prophylaxis Attestations Medical Necessity Statement*: Continue hospitalization for management of COVID-19 pneumonia and hypoxic respiratory failure requiring supplemental oxygen Time Spent in Patient Care: Greater than 35 minutes (>than 50% of time spent in counselling and/or direct pt care on unit). 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
[2020-11-05 17:10] LABS: Glucose Point of Care 270 mg/dL (70-110)
[2020-11-05] MEDS: remdesivir 100 MG in sodium chloride 0.9% (100 ml) 100 ML IV (17:34)
[2020-11-05] MEDS: trazodone 100 mg Tablet PO (21:04)
[2020-11-05 21:15] LABS: Glucose Point of Care 251 mg/dL (70-110)
[2020-11-06] VITALS (8 sets, daily range): BP systolic 122–158; BP diastolic 68–81; PULSE 68–87; RESP 16–20; TEMP 36.4–37.1; O2SAT 87–96
[2020-11-06 08:05] LABS: Glucose Point of Care 152 mg/dL (70-110)
[2020-11-06] MEDS: cholecalciferol (vitamin D3) 5,000 unit Tablet 5000 UNIT PO (08:06)
[2020-11-06] MEDS: enoxaparin 40 mg/0.4 mL Syringe SUBCUT (08:07)
[2020-11-06] MEDS: zinc gluconate 50 mg Tablet PO (08:07)
[2020-11-06] MEDS: ascorbic acid 500 mg Tablet 1000 MG PO ×2 (08:07→17:02)
[2020-11-06] MEDS: dexamethasone 4 mg Tablet 6 MG PO (08:07)
[2020-11-06 08:27] LABS: Basophils % 0.1 %; Hematocrit 44.6 % (42.0-52.0); Hemoglobin 14.7 g/dL (11.7-16.6); Lymphocytes # 1.7 10^3/uL (0.8-4.8); Lymphocytes % 20.4 %; Mean Corpuscular Hemoglobin 28.2 pg (28.0-34.0); Mean Corpuscular Volume 85.4 fL (80-94); Monocytes # 0.8 10^3/uL (0.2-0.9); Monocytes % 9.5 %; Neutrophils # 5.93 10^3/uL (1.8-7.7); Neutrophils % 69.8 %; Nucleated Red Blood Cells % 0 %; Platelet Count 187 10^3/cmm (130-400); Red Blood Count 5.22 10^6/uL (4.1-5.3); Red Cell Distribution Width 13.3 % (12.1-15.1); White Blood Count 8.5 10^3/uL (4.0-10.0)
[2020-11-06 08:39] LABS: D Dimer 0.71 ug/mIFEU (0-0.59)
[2020-11-06 08:47] LABS: Slide Review Slide Review Perform
[2020-11-06 08:54] LABS: Procalcitonin 0.06 ng/mL (0-0.5)
[2020-11-06 09:06] LABS: Alanine Aminotransferase 20 U/L (0-41); Albumin Level 3.5 g/dL (3.5-5.2); Alkaline Phosphatase 77 IU/L (40-130); Aspartate Amino Transferase 17 U/L (0-40); Blood Urea Nitrogen 17 mg/dL (8-23); C Reactive Protein 21.2 mg/L (0.0-4.9); Calcium 8.8 mg/dL (8.5-10.5); Carbon Dioxide 24 mmol/L (22-29); Chloride 98 mmol/L (98-107); Ferritin 485 ng/mL (30-400); Glomerular Filtration Rate 114.3 mL/min (90-130); Glucose 151 mg/dL (65-115); Osmolality Calculated 282 mOsm/kg (285-295); Sodium 134 mmol/L (136-145); Total Bilirubin 0.3 mg/dL (0.15-1.2); Total Protein 6.5 g/dL (6.6-8.7)
[2020-11-06 09:09] LABS: Anion Gap 16.7 (5-19); Potassium 4.7 mmol/L (3.5-5.1)
[2020-11-06] MEDS: HYDROcodone-acetaminophen 5-325 mg Tablet 1 TAB PO ×3 (09:29→22:00)
--- NOTE | 2020-11-06 09:30 | PC.NURSE ---
patient reports pain 6/10 in lung/abd area. meds given for pain.
[2020-11-06 11:00] LABS: Glucose Point of Care 217 mg/dL (70-110)
[2020-11-06] MEDS: atorvastatin 40 mg Tablet 20 MG PO (11:17)
[2020-11-06] MEDS: pantoprazole DR 40 mg Tablet PO (11:17)
[2020-11-06] MEDS: remdesivir 100 MG in sodium chloride 0.9% (100 ml) 100 ML IV (17:02)
[2020-11-06 17:10] LABS: Glucose Point of Care 316 mg/dL (70-110)
--- NOTE | 2020-11-06 18:15 | PC.NURSE ---
patient was accepted at [facility]. Patient said he don't want to be transferred. Sap Bpc Developer called Dr Abel. Sap Bpc Developer explained that patient doesn't have a set day to go home. patient verbalized understanding. patient said he and his talked and they think it would be best if he stays here. he said his Semi and trailer is here and it would cost him around $2000.00 to have it towed back to [place]. He said he wouldn't be able to see his or be in the same room with her. Sap Bpc Developer notified Dr Abel that patient wants to stay.
[2020-11-06 20:58] LABS: Glucose Point of Care 376 mg/dL (70-110)
[2020-11-06] MEDS: trazodone 100 mg Tablet PO (20:58)
--- NOTE | 2020-11-06 21:36 | PM.PN ---
Subjective Subjective: Interval history: He reports that he is not short of breath on nasal cannula. He does get quite fatigable and dyspneic with exertion, however. Reports mild headache. Denies chest pain or pressure. Has no nausea vomiting or diarrhea. Vitals/I&O/Wt Last Vital Signs Temp 97.6 F 11/06/20 20:00 Pulse 78 11/06/20 20:13 Resp 17 11/06/20 20:13 BP 158/81 11/06/20 20:00 Pulse Ox 89 L 11/06/20 20:13 11/06/20 11/06/20 11/06/20 06:59 14:59 22:59 Intake Total 480 / 480 580 / 1060 Balance 480 / 480 580 / 1060 Physical Exam Const: COMMON NORMALS: no acute distress and patient oriented x3 HENMT: COMMON NORMALS: oropharynx normal Neck/C-Spine: COMMON NORMALS: no JVD Resp: COMMON NORMALS: normal respiratory effort and clear to auscultation bilaterally AUSCULTATION: clear to auscultation bilaterally Cardio: COMMON NORMALS: no JVD, regular rhythm, S1 normal heart sound present, S2 normal heart sound present and No murmurs present (Cardio) RHYTHM: regular rhythm HEART SOUNDS: S1 normal heart sound present and S2 normal heart sound present GI: COMMON NORMALS: Normal to inspection, nondistended, normoactive bowel sounds present, Soft to palpation and non-tender PALPATION: Yes Soft to palpation Extremity: COMMON NORMALS: no joint enlargement and no pedal edema Neuro: COMMON NORMALS: patient oriented x3 and moves all extremities Skin: COMMON NORMALS: no rashes or lesions noted GENERAL SKIN EXAM: no rashes or lesions noted Data : 11/06/20 07:44 11/06/20 07:44 A&P Assessment and plan (1) COVID-19: Severe COVID-19 pneumonia, hypoxic respiratory failure. Oxygenation appears stabilized on around 3-4 L nasal cannula. Continue remdesivir, Decadron. Continue supportive care. Continue prophylactic Lovenox. Self prone as tolerating. Today he reported his got admitted to [facility] in [facility]. He requested transfer to that hospital, and this was arranged for him, he was accepted for transfer, however, then he declined to go. Requested to continue care here. Continue oxygen support. Wean down as tolerating. Albuterol treatment COVID-19 isolation Status: Acute (2) Respiratory failure with hypoxia: PE ruled out, secondary to COVID-19, management as mentioned above Home o2 eval prior to discharge Status: Acute Qualifiers: Chronicity: acute Qualified Code(s): J96.01 - Acute respiratory failure with hypoxia Additional A&P Information History of hypertension - Continue current management Type 2 diabetes: - Sliding scale insulin - Diabetic diet - ACHS BS checks Full code DVT prophylaxis Attestations Medical Necessity Statement*: Continue admission for assessment management of severe COVID-19 pneumonia, hypoxic respiratory failure. 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
[2020-11-07] VITALS (7 sets, daily range): BP systolic 137–160; BP diastolic 72–87; PULSE 75–93; RESP 17–18; TEMP 36.5–36.9; O2SAT 90–93
[2020-11-07 06:17] LABS: Basophils % 0.1 %; Hematocrit 43.8 % (42.0-52.0); Hemoglobin 14.5 g/dL (11.7-16.6); Lymphocytes # 1.8 10^3/uL (0.8-4.8); Lymphocytes % 21.1 %; Mean Corpuscular HGB Conc 33.1 g/dL (30.0-36.0); Mean Corpuscular Hemoglobin 28.4 pg (28.0-34.0); Mean Corpuscular Volume 85.9 fL (80-94); Mean Platelet Volume 9.6 fL (7.4-10.4); Monocytes # 0.9 10^3/uL (0.2-0.9); Monocytes % 10.8 %; Neutrophils # 5.89 10^3/uL (1.8-7.7); Neutrophils % 67.7 %; Nucleated Red Blood Cells % 0 %; Platelet Count 191 10^3/cmm (130-400); Red Cell Distribution Width 13.2 % (12.1-15.1); White Blood Count 8.7 10^3/uL (4.0-10.0)
[2020-11-07 06:26] LABS: D Dimer 0.55 ug/mIFEU (0-0.59)
[2020-11-07 06:36] LABS: Glucose Point of Care 164 mg/dL (70-110)
[2020-11-07 06:47] LABS: Alanine Aminotransferase 26 U/L (0-41); Albumin Level 3.2 g/dL (3.5-5.2); Alkaline Phosphatase 85 IU/L (40-130); Anion Gap 15.7 (5-19); Aspartate Amino Transferase 17 U/L (0-40); Blood Urea Nitrogen 17 mg/dL (8-23); C Reactive Protein 16.7 mg/L (0.0-4.9); Calcium 8.5 mg/dL (8.5-10.5); Carbon Dioxide 25 mmol/L (22-29); Chloride 99 mmol/L (98-107); Globulin 3.3 g/dL (1.3-4.6); Glomerular Filtration Rate 114.3 mL/min (90-130); Glucose 175 mg/dL (65-115); Osmolality Calculated 286 mOsm/kg (285-295); Potassium 4.7 mmol/L (3.5-5.1); Sodium 135 mmol/L (136-145); Total Bilirubin 0.3 mg/dL (0.15-1.2); Total Protein 6.5 g/dL (6.6-8.7)
[2020-11-07] MEDS: zinc gluconate 50 mg Tablet PO (08:56)
[2020-11-07] MEDS: pantoprazole DR 40 mg Tablet PO (08:57)
[2020-11-07] MEDS: atorvastatin 40 mg Tablet 20 MG PO (08:57)
[2020-11-07] MEDS: dexamethasone 4 mg Tablet 6 MG PO (08:57)
[2020-11-07] MEDS: enoxaparin 40 mg/0.4 mL Syringe SUBCUT (08:57)
[2020-11-07] MEDS: ascorbic acid 500 mg Tablet 1000 MG PO ×2 (08:57→17:26)
[2020-11-07] MEDS: cholecalciferol (vitamin D3) 5,000 unit Tablet 5000 UNIT PO (08:57)
[2020-11-07] MEDS: HYDROcodone-acetaminophen 5-325 mg Tablet 1 TAB PO ×2 (08:58→16:01)
[2020-11-07] MEDS: magnesium hydroxide 30 mL UDC PO (09:11)
[2020-11-07 11:03] LABS: Glucose Point of Care 201 mg/dL (70-110)
[2020-11-07 16:20] LABS: Glucose Point of Care 356 mg/dL (70-110)
[2020-11-07] MEDS: remdesivir 100 MG in sodium chloride 0.9% (100 ml) 100 ML IV (18:13)
[2020-11-07 20:37] LABS: Glucose Point of Care 290 mg/dL (70-110)
--- NOTE | 2020-11-07 21:22 | PM.PN ---
Subjective Subjective: Interval history: Today he feels little bit more tired. Feels he could not sleep much at night. Was frequently awoken. Having some sharp chest wall discomfort/pleuritic discomfort. Some persistent cough. Mild headache. No nausea vomiting or diarrhea. Vitals/I&O/Wt Last Vital Signs Temp 97.9 F 11/07/20 16:00 Pulse 89 11/07/20 21:03 Resp 18 11/07/20 21:03 BP 155/72 11/07/20 16:00 Pulse Ox 92 11/07/20 21:03 11/07/20 11/07/20 11/07/20 06:59 14:59 22:59 Intake Total 840 / 840 480 / 1320 Balance 840 / 840 480 / 1320 Physical Exam Const: COMMON NORMALS: no acute distress and patient oriented x3 HENMT: COMMON NORMALS: oropharynx normal Neck/C-Spine: COMMON NORMALS: no JVD Resp: COMMON NORMALS: normal respiratory effort and clear to auscultation bilaterally AUSCULTATION: clear to auscultation bilaterally Cardio: COMMON NORMALS: no JVD, regular rhythm, S1 normal heart sound present, S2 normal heart sound present and No murmurs present (Cardio) RHYTHM: regular rhythm HEART SOUNDS: S1 normal heart sound present and S2 normal heart sound present GI: COMMON NORMALS: Normal to inspection, nondistended, normoactive bowel sounds present, Soft to palpation and non-tender PALPATION: Yes Soft to palpation Extremity: COMMON NORMALS: no joint enlargement and no pedal edema Neuro: COMMON NORMALS: patient oriented x3 and moves all extremities Skin: COMMON NORMALS: no rashes or lesions noted GENERAL SKIN EXAM: no rashes or lesions noted Data : 11/07/20 05:42 11/07/20 05:42 A&P Assessment and plan (1) COVID-19: Today he feels more tired. Oxygenation transiently little bit worse this morning, requiring 4 L, and saturating in the high 80s. Feels he could not sleep much. Request to minimize visits overnight. Will pass on to nursing staff. Continue remdesivir. Continue Decadron. Continue oxygen support. Wean down as tolerating. He is unable to self prone due to chronic abdominal hernia. Continue supportive care. Continue prophylactic Lovenox. D-dimer today is normal. Albuterol treatment COVID-19 isolation Status: Acute (2) Respiratory failure with hypoxia: PE ruled out, secondary to COVID-19, management as mentioned above Home o2 eval prior to discharge Status: Acute Qualifiers: Chronicity: acute Qualified Code(s): J96.01 - Acute respiratory failure with hypoxia Additional A&P Information History of hypertension - Continue current management Type 2 diabetes: - Sliding scale insulin - Diabetic diet - ACHS BS checks Full code DVT prophylaxis Attestations Medical Necessity Statement*: Continue admission for assessment of management of severe COVID-19 pneumonia, acute respiratory failure with hypoxia. 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
[2020-11-07] MEDS: trazodone 100 mg Tablet PO (21:25)
[2020-11-08] VITALS (11 sets, daily range): BP systolic 120–147; BP diastolic 72–80; PULSE 79–97; RESP 14–18; TEMP 36.5–36.8; O2SAT 88–94
[2020-11-08 06:15] LABS: Basophils % 0.1 %; Eosinophils % 0.1 %; Hematocrit 44.8 % (42.0-52.0); Lymphocytes # 1.6 10^3/uL (0.8-4.8); Lymphocytes % 16.9 %; Mean Corpuscular HGB Conc 33.5 g/dL (30.0-36.0); Mean Corpuscular Hemoglobin 28.4 pg (28.0-34.0); Mean Corpuscular Volume 84.8 fL (80-94); Mean Platelet Volume 9.1 fL (7.4-10.4); Monocytes % 10.3 %; Neutrophils # 6.75 10^3/uL (1.8-7.7); Neutrophils % 72.1 %; Nucleated Red Blood Cells % 0 %; Platelet Count 209 10^3/cmm (130-400); Red Blood Count 5.28 10^6/uL (4.1-5.3); Red Cell Distribution Width 13.1 % (12.1-15.1); White Blood Count 9.4 10^3/uL (4.0-10.0)
[2020-11-08 06:34] LABS: Alanine Aminotransferase 27 U/L (0-41); Albumin Level 3.4 g/dL (3.5-5.2); Alkaline Phosphatase 96 IU/L (40-130); Anion Gap 15.4 (5-19); Aspartate Amino Transferase 12 U/L (0-40); Blood Urea Nitrogen 16 mg/dL (8-23); Calcium 8.5 mg/dL (8.5-10.5); Carbon Dioxide 28 mmol/L (22-29); Chloride 96 mmol/L (98-107); Glomerular Filtration Rate 114.3 mL/min (90-130); Glucose 228 mg/dL (65-115); Osmolality Calculated 288 mOsm/kg (285-295); Potassium 4.4 mmol/L (3.5-5.1); Sodium 135 mmol/L (136-145); Total Bilirubin 0.4 mg/dL (0.15-1.2); Total Protein 6.4 g/dL (6.6-8.7)
[2020-11-08 06:40] LABS: C Reactive Protein 36.5 mg/L (0.0-4.9)
[2020-11-08 06:43] LABS: Glucose Point of Care 211 mg/dL (70-110)
[2020-11-08] MEDS: albuterol 8 gm MDI 2 PUFF INHALATION ×2 (08:55→12:12)
[2020-11-08] MEDS: enoxaparin 40 mg/0.4 mL Syringe SUBCUT (10:18)
[2020-11-08] MEDS: atorvastatin 40 mg Tablet 20 MG PO (10:19)
[2020-11-08] MEDS: dexamethasone 4 mg Tablet 6 MG PO (10:20)
[2020-11-08] MEDS: pantoprazole DR 40 mg Tablet PO (10:21)
[2020-11-08] MEDS: ascorbic acid 500 mg Tablet 1000 MG PO ×2 (10:21→17:17)
[2020-11-08] MEDS: zinc gluconate 50 mg Tablet PO (10:22)
[2020-11-08] MEDS: HYDROcodone-acetaminophen 5-325 mg Tablet 1 TAB PO ×3 (10:22→22:40)
[2020-11-08] MEDS: cholecalciferol (vitamin D3) 5,000 unit Tablet 5000 UNIT PO (10:23)
[2020-11-08 11:04] LABS: Glucose Point of Care 313 mg/dL (70-110)
[2020-11-08 16:37] LABS: Glucose Point of Care 328 mg/dL (70-110)
[2020-11-08] MEDS: remdesivir 100 MG in sodium chloride 0.9% (100 ml) 100 ML IV (17:18)
--- NOTE | 2020-11-08 20:43 | P.PN_ITS ---
Subjective Subjective: Interval history: He did some good rest last night, and also has had 2 bowel movements. Today he was feeling little bit more energized, although still requiring about the same amount of oxygen around 3-3-1/2 L. Coughing perhaps little bit less today. No nausea vomiting or diarrhea. Vitals/I&O/Wt Last Vital Signs Temp 97.9 F 11/08/20 19:58 Pulse 80 11/08/20 19:58 Resp 18 11/08/20 19:58 BP 134/74 11/08/20 19:58 Pulse Ox 94 11/08/20 19:58 11/08/20 11/08/20 11/08/20 06:59 14:59 22:59 Intake Total 360 / 2260 600 / 600 240 / 840 Balance 360 / 2260 600 / 600 240 / 840 Physical Exam Const: COMMON NORMALS: no acute distress and patient oriented x3 HENMT: COMMON NORMALS: oropharynx normal Neck/C-Spine: COMMON NORMALS: no JVD Resp: COMMON NORMALS: normal respiratory effort and clear to auscultation bilaterally AUSCULTATION: clear to auscultation bilaterally Cardio: COMMON NORMALS: no JVD, regular rhythm, S1 normal heart sound present, S2 normal heart sound present and No murmurs present (Cardio) RHYTHM: regular rhythm HEART SOUNDS: S1 normal heart sound present and S2 normal heart sound present GI: COMMON NORMALS: Normal to inspection, nondistended, normoactive bowel sounds present, Soft to palpation and non-tender PALPATION: Yes Soft to palpation Extremity: COMMON NORMALS: no joint enlargement and no pedal edema Neuro: COMMON NORMALS: patient oriented x3 and moves all extremities Skin: COMMON NORMALS: no rashes or lesions noted GENERAL SKIN EXAM: no rashes or lesions noted Data : 11/08/20 05:58 11/08/20 05:58 A&P Assessment and plan (1) COVID-19: The little bit more rested, persistent hypoxia. Persistent hypoxic respiratory failure secondary to severe COVID-19 pneumonia. Today would be his last day of remdesivir. Given persistent hypoxia we discussed number of options going forward. He would like to reassess again to [place]. In case of worsening hypoxia he would be willing to consider having convalescent plasma infusion. We discussed possible benefits, as well as possible risks associated with infusion of blood products. In case of lack of improvement otherwise he is willing to extend remdesivir course additional 5 days. We will continue Decadron. Will repeat chest x-ray in the morning. Continue supportive care. Continue prophylactic Lovenox. Albuterol treatment COVID-19 isolation Status: Acute (2) Respiratory failure with hypoxia: PE ruled out, secondary to COVID-19, management as mentioned above Home o2 eval prior to discharge Status: Acute Qualifiers: Chronicity: acute Qualified Code(s): J96.01 - Acute respiratory failure with hypoxia Additional A&P Information History of hypertension - Continue current management Type 2 diabetes: - Sliding scale insulin - Diabetic diet - ACHS BS checks Full code DVT prophylaxis Attestations Medical Necessity Statement*: Continue admission for assessment of management of severe COVID-19 pneumonia, hypoxic respiratory failure. 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
[2020-11-08 20:47] LABS: Glucose Point of Care 398 mg/dL (70-110)
[2020-11-08] MEDS: trazodone 100 mg Tablet PO (21:14)
[2020-11-09] VITALS (9 sets, daily range): BP systolic 125–152; BP diastolic 72–90; PULSE 69–86; RESP 16–20; TEMP 36.3–37.2; O2SAT 91–96
--- NOTE | 2020-11-09 06:00 | XR_ITS ---
WS: [id number] Portable AP upright chest, 11/09/2020 Clinical Data: Hypoxia Comparison: Portable chest, 11/04/2020. Findings: Bilateral lung opacities have not changed. The heart remains enlarged. The aortic arch and descending aorta are tortuous. XR/XR chest 1V portable [id number] Impression: No change in bilateral lung opacities and cardiomegaly.
[2020-11-09 06:34] LABS: Basophils % 0.2 %; Eosinophils % 0.4 %; Hematocrit 45.9 % (42.0-52.0); Hemoglobin 15.2 g/dL (11.7-16.6); Lymphocytes # 1.9 10^3/uL (0.8-4.8); Lymphocytes % 18.2 %; Mean Corpuscular HGB Conc 33.1 g/dL (30.0-36.0); Mean Corpuscular Hemoglobin 28.5 pg (28.0-34.0); Mean Corpuscular Volume 86.1 fL (80-94); Mean Platelet Volume 9.5 fL (7.4-10.4); Monocytes # 1.2 10^3/uL (0.2-0.9); Monocytes % 11.3 %; Neutrophils # 7.33 10^3/uL (1.8-7.7); Neutrophils % 68.7 %; Nucleated Red Blood Cells % 0 %; Platelet Count 236 10^3/cmm (130-400); Red Blood Count 5.33 10^6/uL (4.1-5.3); Red Cell Distribution Width 13.2 % (12.1-15.1); White Blood Count 10.7 10^3/uL (4.0-10.0)
[2020-11-09 06:43] LABS: D Dimer 0.59 ug/mIFEU (0-0.59)
[2020-11-09 06:55] LABS: Alanine Aminotransferase 26 U/L (0-41); Albumin Level 3.4 g/dL (3.5-5.2); Alkaline Phosphatase 96 IU/L (40-130); Anion Gap 13.5 (5-19); Aspartate Amino Transferase 11 U/L (0-40); Blood Urea Nitrogen 15 mg/dL (8-23); Calcium 8.7 mg/dL (8.5-10.5); Carbon Dioxide 29 mmol/L (22-29); Chloride 96 mmol/L (98-107); Globulin 3.1 g/dL (1.3-4.6); Glomerular Filtration Rate 114.3 mL/min (90-130); Glucose 190 mg/dL (65-115); Osmolality Calculated 284 mOsm/kg (285-295); Potassium 4.5 mmol/L (3.5-5.1); Sodium 134 mmol/L (136-145); Total Bilirubin 0.4 mg/dL (0.15-1.2); Total Protein 6.5 g/dL (6.6-8.7)
[2020-11-09 07:21] LABS: C Reactive Protein 30.6 mg/L (0.0-4.9)
[2020-11-09 08:02] LABS: Glucose Point of Care 183 mg/dL (70-110)
[2020-11-09] MEDS: enoxaparin 40 mg/0.4 mL Syringe SUBCUT (09:21)
[2020-11-09] MEDS: ascorbic acid 500 mg Tablet 1000 MG PO ×2 (09:22→18:16)
[2020-11-09] MEDS: dexamethasone 4 mg Tablet 6 MG PO (09:22)
[2020-11-09] MEDS: zinc gluconate 50 mg Tablet PO (09:23)
[2020-11-09] MEDS: cholecalciferol (vitamin D3) 5,000 unit Tablet 5000 UNIT PO (09:24)
[2020-11-09] MEDS: HYDROcodone-acetaminophen 5-325 mg Tablet 1 TAB PO ×3 (09:25→21:46)
[2020-11-09] MEDS: atorvastatin 40 mg Tablet 20 MG PO (09:25)
[2020-11-09] MEDS: pantoprazole DR 40 mg Tablet PO (09:28)
[2020-11-09 11:55] LABS: Glucose Point of Care 283 mg/dL (70-110)
[2020-11-09 17:02] LABS: Glucose Point of Care 355 mg/dL (70-110)
[2020-11-09 20:57] LABS: Glucose Point of Care 295 mg/dL (70-110)
[2020-11-09] MEDS: trazodone 100 mg Tablet PO (21:46)
--- NOTE | 2020-11-09 22:45 | P.PN_ITS ---
Subjective Subjective: Interval history: Today he is feeling more energetic. He still requiring 3-1/2 L of oxygen, however, saturations now have consistently stayed above 90%. He has been getting up more, and now states when walking to the restroom does not get lightheaded anymore. No diarrhea, nausea or vomiting. Usually suffers from constipation, but has had another bowel movement today. Medications: Reviewed: Yes Vitals/I&O/Wt Last Vital Signs Temp 97.8 F 11/09/20 20:00 Pulse 82 11/09/20 20:00 Resp 17 11/09/20 20:00 BP 146/90 11/09/20 20:00 Pulse Ox 92 11/09/20 20:00 11/09/20 11/09/20 11/09/20 06:59 14:59 22:59 Intake Total 720 / 1560 640 / 640 480 / 1120 Balance 720 / 1560 640 / 640 480 / 1120 Physical Exam Const: COMMON NORMALS: no acute distress, patient oriented x3 and alert GENERAL APPEARANCE: cooperative and comfortable ORIENTATION/CONSCIOUSNESS: Yes awake OTHER: Up in chair. Conversant. Speaking in long full sentences. HENMT: COMMON NORMALS: oropharynx normal Neck/C-Spine: COMMON NORMALS: no JVD Resp: COMMON NORMALS: normal respiratory effort and clear to auscultation bi laterally AUSCULTATION: clear to auscultation bilaterally Cardio: COMMON NORMALS: no JVD, regular rhythm, S1 normal heart sound present, S2 normal heart sound present and No murmurs present (Cardio) RHYTHM: regular rhythm HEART SOUNDS: S1 normal heart sound present and S2 normal heart sound present GI: COMMON NORMALS: Normal to inspection, nondistended, normoactive bowel sounds present, Soft to palpation and non-tender PALPATION: Yes Soft to palpation Extremity: COMMON NORMALS: no joint enlargement and no pedal edema Neuro: COMMON NORMALS: patient oriented x3 and moves all extremities SENSORIUM/ORIENTATION: Yes alert Skin: COMMON NORMALS: no rashes or lesions noted GENERAL SKIN EXAM: no rashes or lesions noted Data : 11/09/20 05:26 11/09/20 05:26 A&P Assessment and plan (1) COVID-19: Still hypoxic, requiring 3-1/2 L of oxygen, however, the persistently above 90% saturation. He is becoming more mobile. Now denies lightheadedness on walking to the restroom. D-dimer remains normal. CRP with improvement compared to yesterday down to 30.6. He states he feels he is coming to a point when he is ready to return home. We discussed additional options going forward including continuation of Decadron observation, resumption of remdesivir for additional 5 days, consideration of convalescent plasma. Discussed risks of illness progression as well as red flags to watch out for. Risks of VTE, and other thrombosis including myocardial infarction and stroke could have been observed with COVID-19. Discussed exercising caution as these events may occur at any time unexpectedly, and his condition may worsen rather rapidly, even after initial improvement. He feels that overall he should do well. Tentatively he would like to consider discharge tomorrow if his oxygenation stays stable, and symptomatically he continues to improve. He does not want to at this time resume remdesivir or arrange for convalescent plasma. Chest x-ray repeated today with finding of unchanged bilateral lung opacities and cardiomegaly. Discussed with him that he will require oxygen on discharge. Will need home O2 evaluation. Continue supportive care. Continue prophylactic Lovenox. Albuterol treatment COVID-19 isolation Status: Acute (2) Respiratory failure with hypoxia: PE ruled out, secondary to COVID-19, management as mentioned above Home o2 eval prior to discharge Status: Acute Qualifiers: Chronicity: acute Qualified Code(s): J96.01 - Acute respiratory failure with hypoxia Additional A&P Information History of hypertension - Continue current management Type 2 diabetes: - Sliding scale insulin - Diabetic diet - ACHS BS checks Full code DVT prophylaxis Attestations Medical Necessity Statement*: Continue admission for assessment of management of slow to improve severe COVID-19 pneumonia, hypoxic respiratory failure, disposition planning and arrangements. Coding Level of Care Code Acute Recyclable Materials Sorter for Brad Barrera Diagnoses COVID-19 U07.1 Respiratory failure with hypoxia J96.01 Chronicity: acute
[2020-11-10] VITALS (7 sets, daily range): BP systolic 120–157; BP diastolic 73–90; PULSE 72–90; RESP 17–20; TEMP 36.2–37.4; O2SAT 91–95
[2020-11-10 06:39] LABS: Basophils % 0.1 %; Eosinophils # 0.1 10^3/uL (0.0-0.8); Eosinophils % 0.6 %; Hematocrit 45.7 % (42.0-52.0); Hemoglobin 15.3 g/dL (11.7-16.6); Lymphocytes # 2.1 10^3/uL (0.8-4.8); Lymphocytes % 15.5 %; Mean Corpuscular HGB Conc 33.5 g/dL (30.0-36.0); Mean Corpuscular Hemoglobin 28.3 pg (28.0-34.0); Mean Corpuscular Volume 84.5 fL (80-94); Mean Platelet Volume 9.6 fL (7.4-10.4); Monocytes # 1.3 10^3/uL (0.2-0.9); Monocytes % 9.2 %; Neutrophils # 9.88 10^3/uL (1.8-7.7); Neutrophils % 72.9 %; Nucleated Red Blood Cells % 0 %; Platelet Count 305 10^3/cmm (130-400); Red Blood Count 5.41 10^6/uL (4.1-5.3); White Blood Count 13.6 10^3/uL (4.0-10.0)
[2020-11-10 06:53] LABS: D Dimer 0.68 ug/mIFEU (0-0.59)
[2020-11-10 07:05] LABS: Alanine Aminotransferase 27 U/L (0-41); Albumin Level 3.3 g/dL (3.5-5.2); Alkaline Phosphatase 98 IU/L (40-130); Anion Gap 17.3 (5-19); Aspartate Amino Transferase 11 U/L (0-40); Blood Urea Nitrogen 15 mg/dL (8-23); C Reactive Protein 15.4 mg/L (0.0-4.9); Calcium 8.8 mg/dL (8.5-10.5); Carbon Dioxide 26 mmol/L (22-29); Chloride 95 mmol/L (98-107); Globulin 3.3 g/dL (1.3-4.6); Glomerular Filtration Rate 114.3 mL/min (90-130); Glucose 210 mg/dL (65-115); Osmolality Calculated 285 mOsm/kg (285-295); Potassium 4.3 mmol/L (3.5-5.1); Sodium 134 mmol/L (136-145); Total Bilirubin 0.4 mg/dL (0.15-1.2); Total Protein 6.6 g/dL (6.6-8.7)
[2020-11-10 07:12] LABS: Glucose Point of Care 197 mg/dL (70-110)
[2020-11-10] MEDS: dexamethasone 4 mg Tablet 6 MG PO (08:56)
[2020-11-10] MEDS: enoxaparin 40 mg/0.4 mL Syringe SUBCUT (08:56)
[2020-11-10] MEDS: ascorbic acid 500 mg Tablet 1000 MG PO ×2 (08:57→19:43)
[2020-11-10] MEDS: cholecalciferol (vitamin D3) 5,000 unit Tablet 5000 UNIT PO (08:58)
[2020-11-10] MEDS: zinc gluconate 50 mg Tablet PO (08:58)
[2020-11-10] MEDS: HYDROcodone-acetaminophen 5-325 mg Tablet 1 TAB PO ×3 (08:59→21:54)
[2020-11-10] MEDS: pantoprazole DR 40 mg Tablet PO (09:00)
[2020-11-10] MEDS: atorvastatin 40 mg Tablet 20 MG PO (09:00)
[2020-11-10 10:51] LABS: Glucose Point of Care 349 mg/dL (70-110)
[2020-11-10] MEDS: remdesivir 100 MG in sodium chloride 0.9% (100 ml) 100 ML IV (15:14)
[2020-11-10] MEDS: LORazepam 2 mg/mL INJ 1 mL 0.5 MG IVP (15:57)
[2020-11-10 17:14] LABS: Glucose Point of Care 357 mg/dL (70-110)
[2020-11-10 20:14] LABS: Glucose Point of Care 366 mg/dL (70-110)
--- NOTE | 2020-11-10 20:45 | P.PN_ITS ---
Subjective Subjective: Interval history: Today he is feeling about the same as yesterday. Not much further improvement. Denies headache. No chest pain. 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 He verbalized understanding that he should not be driving his semi while requiring oxygen. He states that there is nobody who can come pick him up here, so he is wanting to resume and continue care until he can discharge either not requiring oxygen, or is able to arrange alternative means of returning home. He understands that this is a safety concern with regards to himself and others on the road. Vitals/I&O/Wt Last Vital Signs Temp 97.2 F L 11/10/20 20:00 Pulse 73 11/10/20 20:00 Resp 20 H 11/10/20 20:00 BP 157/90 11/10/20 20:00 Pulse Ox 95 11/10/20 20:00 11/10/20 11/10/20 11/10/20 06:59 14:59 22:59 Intake Total 1100 / 1100 340 / 1440 Balance 1100 / 1100 340 / 1440 Physical Exam Const: COMMON NORMALS: no acute distress, patient oriented x3 and alert GENERAL APPEARANCE: cooperative and comfortable ORIENTATION/CONSCIOUSNESS: Yes awake OTHER: Up in chair. Conversant. Speaking in long full sentences. HENMT: COMMON NORMALS: oropharynx normal Neck/C-Spine: COMMON NORMALS: no JVD Resp: COMMON NORMALS: normal respiratory effort and clear to auscultation bilaterally AUSCULTATION: clear to auscultation bilaterally Cardio: COMMON NORMALS: no JVD, regular rhythm, S1 normal heart sound present, S2 normal heart sound present and No murmurs present (Cardio) RHYTHM: regular rhythm HEART SOUNDS: S1 normal heart sound present and S2 normal heart sound present GI: COMMON NORMALS: Normal to inspection, nondistended, normoactive bowel sounds present, Soft to palpation and non-tender PALPATION: Yes Soft to palpation Extremity: COMMON NORMALS: no joint enlargement and no pedal edema Neuro: COMMON NORMALS: patient oriented x3 and moves all extremities SENSORIUM/ORIENTATION: Yes alert Skin: COMMON NORMALS: no rashes or lesions noted GENERAL SKIN EXAM: no rashes or lesions noted Data : 11/10/20 05:22 11/10/20 05:22 A&P Assessment and plan (1) COVID-19: Continues requiring 3-1/2, and tonight 3 L by nasal cannula. Appears to show gradual improvement. 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 Does not have alternative means of getting back, and thus prefers to continue treatment here until he is sufficiently improving to be able to go back home. Would like to resume remdesivir for additional 5 days given persistent hypoxia. D-dimer is higher today. Discussed with him also regarding risk of VTE and other thrombosis with COVID-19. We'll recheck D-dimer. If there is a concerning trend, he would be willing to consider additional course of 2-3 weeks of anticoagulation/VTE prophylaxis. Continue supportive care. Continue prophylactic Lovenox. Albuterol treatment COVID-19 isolation Status: Acute (2) Respiratory failure with hypoxia: PE ruled out, secondary to COVID-19, management as mentioned above Home o2 eval prior to discharge Status: Acute Qualifiers: Chronicity: acute Qualified Code(s): J96.01 - Acute respiratory failure with hypoxia Additional A&P Information History of hypertension - Continue current management Type 2 diabetes: - Sliding scale insulin - Diabetic diet - ACHS BS checks Full code DVT prophylaxis Attestations Medical Necessity Statement*: Continue admission for assessment of management of severe COVID-19 pneumonia, persistent hypoxia, extension of remdesivir course. 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
[2020-11-10 21:53] LABS: Glucose Point of Care 322 mg/dL (70-110)
[2020-11-10] MEDS: trazodone 100 mg Tablet PO (21:55)
[2020-11-11] VITALS (7 sets, daily range): BP systolic 116–155; BP diastolic 72–88; PULSE 75–96; RESP 18–22; TEMP 36.3–36.9; O2SAT 91–97
[2020-11-11 05:12] LABS: Basophils % 0.1 %; Eosinophils # 0.1 10^3/uL (0.0-0.8); Eosinophils % 0.6 %; Hematocrit 46.5 % (42.0-52.0); Hemoglobin 15.5 g/dL (11.7-16.6); Lymphocytes # 2.4 10^3/uL (0.8-4.8); Lymphocytes % 16.3 %; Mean Corpuscular HGB Conc 33.3 g/dL (30.0-36.0); Mean Corpuscular Hemoglobin 28.5 pg (28.0-34.0); Mean Corpuscular Volume 85.6 fL (80-94); Monocytes # 1.3 10^3/uL (0.2-0.9); Monocytes % 8.8 %; Neutrophils # 10.65 10^3/uL (1.8-7.7); Neutrophils % 72.3 %; Nucleated Red Blood Cells % 0 %; Platelet Count 313 10^3/cmm (130-400); Red Blood Count 5.43 10^6/uL (4.1-5.3); Red Cell Distribution Width 13.2 % (12.1-15.1); White Blood Count 14.7 10^3/uL (4.0-10.0)
[2020-11-11 05:53] LABS: D Dimer 0.37 ug/mIFEU (0-0.59)
[2020-11-11 06:01] LABS: Alanine Aminotransferase 23 U/L (0-41); Albumin Level 3.5 g/dL (3.5-5.2); Alkaline Phosphatase 93 IU/L (40-130); Anion Gap 15.4 (5-19); Aspartate Amino Transferase 10 U/L (0-40); Blood Urea Nitrogen 20 mg/dL (8-23); Calcium 8.7 mg/dL (8.5-10.5); Carbon Dioxide 28 mmol/L (22-29); Chloride 94 mmol/L (98-107); Globulin 3.1 g/dL (1.3-4.6); Glomerular Filtration Rate 114.3 mL/min (90-130); Glucose 192 mg/dL (65-115); Osmolality Calculated 284 mOsm/kg (285-295); Potassium 4.4 mmol/L (3.5-5.1); Sodium 133 mmol/L (136-145); Total Bilirubin 0.4 mg/dL (0.15-1.2); Total Protein 6.6 g/dL (6.6-8.7)
[2020-11-11 06:41] LABS: Glucose Point of Care 186 mg/dL (70-110)
[2020-11-11] MEDS: enoxaparin 40 mg/0.4 mL Syringe SUBCUT (07:37)
[2020-11-11] MEDS: cholecalciferol (vitamin D3) 5,000 unit Tablet 5000 UNIT PO (07:37)
[2020-11-11] MEDS: zinc gluconate 50 mg Tablet PO (07:37)
[2020-11-11] MEDS: dexamethasone 4 mg Tablet 6 MG PO (07:37)
[2020-11-11] MEDS: atorvastatin 40 mg Tablet 20 MG PO (07:37)
[2020-11-11] MEDS: ascorbic acid 500 mg Tablet 1000 MG PO ×2 (07:37→17:50)
[2020-11-11] MEDS: NON-FORMULARY MEDICATION (Linaclotide [Linzess] 145 mcg capsule) 145 EACH PO (07:38)
[2020-11-11] MEDS: pantoprazole DR 40 mg Tablet PO (07:38)
[2020-11-11] MEDS: HYDROcodone-acetaminophen 5-325 mg Tablet 1 TAB PO ×3 (07:38→20:13)
[2020-11-11] MEDS: LORazepam 2 mg/mL INJ 1 mL 0.5 MG IVP ×2 (10:26→18:05)
[2020-11-11 11:06] LABS: Glucose Point of Care 310 mg/dL (70-110)
[2020-11-11] MEDS: remdesivir 100 MG in sodium chloride 0.9% (100 ml) 100 ML IV (13:03)
--- NOTE | 2020-11-11 13:46 | P.PN_ITS ---
Subjective Subjective: Interval history: He got the news that his niece whom he was close with was killed in a car accident. Became very anxious and distressed. Requested for additional Ativan. He is worried that this may hamper his progress, affecting his anxiety. He otherwise denies chest pain. No nausea or vomiting. No headache. For breakfast requests if his diet could be not limited as he would like to have a sausage or a piece of meat, and scrambled eggs that are not just egg whites. Vitals/I&O/Wt Last Vital Signs Temp 98.4 F 11/11/20 11:28 Pulse 82 11/11/20 11:28 Resp 18 11/11/20 11:28 BP 131/83 11/11/20 11:28 Pulse Ox 94 11/11/20 09:16 11/10/20 11/11/20 11/11/20 22:59 06:59 14:59 Intake Total 580 / 1680 Balance 580 / 1680 Physical Exam Const: COMMON NORMALS: no acute distress, patient oriented x3 and alert GENERAL APPEARANCE: cooperative and comfortable ORIENTATION/CONSCIOUSNESS: Yes awake OTHER: Up in bed. Having lunch. Conversant. Speaking in long full sentences. HENMT: COMMON NORMALS: oropharynx normal Neck/C-Spine: COMMON NORMALS: no JVD Resp: COMMON NORMALS: normal respiratory effort and clear to auscultation bila terally AUSCULTATION: clear to auscultation bilaterally Cardio: COMMON NORMALS: no JVD, regular rhythm, S1 normal heart sound present, S2 normal heart sound present and No murmurs present (Cardio) RHYTHM: regular rhythm HEART SOUNDS: S1 normal heart sound present and S2 normal heart sound present GI: COMMON NORMALS: Normal to inspection, nondistended, normoactive bowel sounds present, Soft to palpation and non-tender PALPATION: Yes Soft to palpation Extremity: COMMON NORMALS: no joint enlargement and no pedal edema Neuro: COMMON NORMALS: patient oriented x3 and moves all extremities SENSORIUM/ORIENTATION: Yes alert Skin: COMMON NORMALS: no rashes or lesions noted GENERAL SKIN EXAM: no rashes or lesions noted Data : 11/11/20 04:37 11/11/20 04:37 A&P Assessment and plan (1) COVID-19: Oxygen requirement appears to be very gradually decreasing. He is down to 3 L nasal cannula, saturations around 94%. Yesterday became very anxious, today again episode of anxiety after found out that his niece was killed in a car accident. Was given Ativan for anxiety and appears to have helped. Currently breathing comfortably on nasal cannula. D-dimer is normal. CRP has been declining. Continue extended course remdesivir, Decadron. Continue oxygen support, inhalers. Pulmonary toilet. Continue Lovenox VT prophylaxis. Monitor D-dimer, CRP. 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 States he may look into renting a car to drive back to [place] in case continues to improve/depending on his condition and progress in the next several days. Continue supportive care. Continue prophylactic Lovenox. Albuterol treatment COVID-19 isolation Status: Acute (2) Respiratory failure with hypoxia: PE ruled out, secondary to COVID-19, management as mentioned above Home o2 eval prior to discharge Status: Acute Qualifiers: Chronicity: acute Qualified Code(s): J96.01 - Acute respiratory failure with hypoxia Additional A&P Information History of hypertension - Continue current management Type 2 diabetes: - Sliding scale insulin - Diabetic diet - ACHS BS checks Full code DVT prophylaxis Attestations Medical Necessity Statement*: Continue admission for assessment of management of hypoxic respiratory failure secondary to severe COVID-19 infection. Coding Level of Care Code Acute Axle And Frame Mechanic for Brad Barrera Diagnoses COVID-19 U07.1 Respiratory failure with hypoxia J96.01 Chronicity: acute
[2020-11-11 17:35] LABS: Glucose Point of Care 401 mg/dL (70-110)
[2020-11-11] MEDS: trazodone 100 mg Tablet PO (20:13)
[2020-11-11 21:13] LABS: Glucose Point of Care 413 mg/dL (70-110)
[2020-11-12] VITALS (8 sets, daily range): BP systolic 128–150; BP diastolic 69–83; PULSE 74–92; RESP 16–21; TEMP 36.4–36.9; O2SAT 78–94
[2020-11-12 06:20] LABS: Basophils % 0.2 %; Eosinophils # 0.1 10^3/uL (0.0-0.8); Eosinophils % 0.7 %; Hematocrit 46.6 % (42.0-52.0); Hemoglobin 15.7 g/dL (11.7-16.6); Lymphocytes # 2.6 10^3/uL (0.8-4.8); Lymphocytes % 16.2 %; Mean Corpuscular HGB Conc 33.7 g/dL (30.0-36.0); Mean Corpuscular Hemoglobin 28.5 pg (28.0-34.0); Mean Corpuscular Volume 84.6 fL (80-94); Mean Platelet Volume 9.2 fL (7.4-10.4); Monocytes # 1.6 10^3/uL (0.2-0.9); Monocytes % 9.6 %; Neutrophils # 11.55 10^3/uL (1.8-7.7); Neutrophils % 71.2 %; Nucleated Red Blood Cells % 0 %; Platelet Count 317 10^3/cmm (130-400); Red Blood Count 5.51 10^6/uL (4.1-5.3); Red Cell Distribution Width 13.2 % (12.1-15.1); White Blood Count 16.2 10^3/uL (4.0-10.0)
[2020-11-12 06:39] LABS: Alanine Aminotransferase 25 U/L (0-41); Albumin Level 3.5 g/dL (3.5-5.2); Alkaline Phosphatase 95 IU/L (40-130); Anion Gap 13.5 (5-19); Aspartate Amino Transferase 9 U/L (0-40); Blood Urea Nitrogen 20 mg/dL (8-23); C Reactive Protein 5.7 mg/L (0.0-4.9); Calcium 8.5 mg/dL (8.5-10.5); Carbon Dioxide 28 mmol/L (22-29); Chloride 97 mmol/L (98-107); Globulin 3.1 g/dL (1.3-4.6); Glomerular Filtration Rate 114.3 mL/min (90-130); Glucose 243 mg/dL (65-115); Osmolality Calculated 289 mOsm/kg (285-295); Potassium 4.5 mmol/L (3.5-5.1); Sodium 134 mmol/L (136-145); Total Bilirubin 0.4 mg/dL (0.15-1.2); Total Protein 6.6 g/dL (6.6-8.7)
[2020-11-12 06:44] LABS: Glucose Point of Care 229 mg/dL (70-110)
[2020-11-12] MEDS: HYDROcodone-acetaminophen 5-325 mg Tablet 1 TAB PO ×3 (07:36→21:14)
[2020-11-12] MEDS: atorvastatin 40 mg Tablet 20 MG PO (08:40)
[2020-11-12] MEDS: pantoprazole DR 40 mg Tablet PO (08:40)
[2020-11-12] MEDS: ascorbic acid 500 mg Tablet 1000 MG PO ×2 (08:40→17:33)
[2020-11-12] MEDS: zinc gluconate 50 mg Tablet PO (08:40)
[2020-11-12] MEDS: cholecalciferol (vitamin D3) 5,000 unit Tablet 5000 UNIT PO (08:42)
[2020-11-12] MEDS: enoxaparin 40 mg/0.4 mL Syringe SUBCUT (08:42)
--- NOTE | 2020-11-12 09:02 | PC.NURSE ---
at 0700 patient's oxygen was 78% on 8L NC. Manager Plumbing turned patient to 10L NC, oxygen saturation was 81-83%. Manager Plumbing notified RT and spoke with Amelia, she said Dr doesn't want oxygen increased and she is on her way. Amelia RT came to room and assessed patient and said to just let her catch up. Patient has anxiety. Patient's oxygen is 93% on 8L NC.
[2020-11-12] MEDS: dexamethasone 4 mg Tablet 2 MG PO (09:26)
--- NOTE | 2020-11-12 09:53 | PC.NURSE ---
patient requesting something for anxiety. rewriter notified Dr Abel. Rcvd order from xanax 0.25mg one time. rewriter put order in for xanax.
[2020-11-12] MEDS: ALPRAZolam 0.25 mg Tablet PO ×2 (10:14→15:06)
--- NOTE | 2020-11-12 10:21 | PC.NURSE ---
patient said he doesn't want anyone to bother him until it is time to eat lunch. patient refuses vitals for 1200 today.
--- NOTE | 2020-11-12 11:18 | PC.NURSE ---
Patient refused vitals
[2020-11-12 12:15] LABS: Glucose Point of Care 309 mg/dL (70-110)
[2020-11-12] MEDS: remdesivir 100 MG in sodium chloride 0.9% (100 ml) 100 ML IV (13:32)
--- NOTE | 2020-11-12 14:50 | PC.NURSE ---
patient requesting anxiety medication. Dr Abel notified.
--- NOTE | 2020-11-12 14:53 | PC.NURSE ---
Dr Abel put order for xanax in.
[2020-11-12 16:15] LABS: Glucose Point of Care 407 mg/dL (70-110)
[2020-11-12 20:50] LABS: Glucose Point of Care 455 mg/dL (70-110)
[2020-11-12] MEDS: trazodone 100 mg Tablet PO (21:11)
--- NOTE | 2020-11-12 21:12 | P.PN_ITS ---
Subjective Subjective: Interval history: Today he is doing about the same. Has been having episodes of anxiety recently due to his niece's passing. Denies chest pain or pressure. Breathing appears to be gradually improving. He is making plans to most likely discharge from the hospital tomorrow, even if he is requiring oxygen so he can come back home and be close to his . She has been needing to undergo procedure for pacemaker placement after also being ill with COVID-19. He states that his daughter will be coming here to pick him up and drive him back. Vitals/I&O/Wt Last Vital Signs Temp 97.5 F L 11/12/20 20:00 Pulse 81 11/12/20 20:58 Resp 16 11/12/20 20:58 BP 147/69 11/12/20 20:00 Pulse Ox 93 11/12/20 20:58 11/12/20 11/12/20 11/12/20 06:59 14:59 22:59 Intake Total 800 / 900 840 / 840 580 / 1420 Output Total 700 / 700 Balance 800 / 900 140 / 140 580 / 720 Physical Exam Const: COMMON NORMALS: no acute distress, patient oriented x3 and alert GENERAL APPEARANCE: cooperative and comfortable ORIENTATION/CONSCIOUSNESS: Yes awake OTHER: Laying in bed. Not as conversant today. Denies any questions or requests. HENMT: COMMON NORMALS: oropharynx normal Neck/C-Spine: COMMON NORMALS: no JVD Resp: COMMON NORMALS: normal respiratory effort and clear to auscultation bilaterally AUSCULTATION: clear to auscultation bilaterally Cardio: COMMON NORMALS: no JVD, regular rhythm, S1 normal heart sound present, S2 normal heart sound present and No murmurs present (Cardio) RHYTHM: regular rhythm HEART SOUNDS: S1 normal heart sound present and S2 normal heart sound present GI: COMMON NORMALS: Normal to inspection, nondistended, normoactive bowel soun ds present, Soft to palpation and non-tender PALPATION: Yes Soft to palpation Extremity: COMMON NORMALS: no joint enlargement and no pedal edema Neuro: COMMON NORMALS: patient oriented x3 and moves all extremities SENSORIUM/ORIENTATION: Yes alert Skin: COMMON NORMALS: no rashes or lesions noted GENERAL SKIN EXAM: no rashes or lesions noted Data : 11/12/20 06:09 11/12/20 06:09 A&P Assessment and plan (1) COVID-19: Now appears to be showing some good improvement in terms of oxygenation, with improving severe COVID-19 pneumonia, hypoxic respiratory failure. Appears to be weaning down to about 1.5 L oxygen requirement by nasal cannula. He is tentatively made a plan to discharge tomorrow even if he is requiring some oxygen so he may go back home to be close to his who is been eating pacemaker following COVID-19 illness. He has been having episodes of anxiety recently following his niece's passing. He states his daughter will be coming to pick him up to driving back home tomorrow, and he would like to try to discharge by noon-1 PM. 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 His CRP has been decreasing close to normal now. We will recheck CRP, D-dimer in the morning. Depending on results consider risk versus benefit of post discharge additional thromboprophylaxis. Home O2 evaluation. Continue to wean down oxygen as tolerated. We have tapered down Decadron to 2 mg. Due to rising leukocytosis will check UA, repeat chest x-ray in the morning. Does not appear to have signs of worsening sepsis or pneumonia. Follow-up CBC. Continue extended course remdesivir, Decadron. Continue oxygen support, inhalers. Pulmonary toilet. Continue supportive care. Continue prophylactic Lovenox. Albuterol treatment COVID-19 isolation Status: Acute (2) Respiratory failure with hypoxia: PE ruled out, secondary to COVID-19, management as mentioned above Home o2 eval prior to discharge Status: Acute Qualifiers: Chronicity: acute Qualified Code(s): J96.01 - Acute respiratory failure with hypoxia Additional A&P Information History of hypertension - Continue current management Type 2 diabetes: - Sliding scale insulin - Diabetic diet - ACHS BS checks Full code DVT prophylaxis Attestations Medical Necessity Statement*: Continue admission for treatment of hypoxic respiratory failure secondary to severe COVID-19 pneumonia. Coding Level of Care Code Acute Electric Hoist Operator for Brad Barrera Diagnoses COVID-19 U07.1 Respiratory failure with hypoxia J96.01 Chronicity: acute
[2020-11-13 04:00] VITALS: BP 127/75; PULSE 71; RESP 17; TEMP 36.7; O2SAT 93
[2020-11-13 05:39] LABS: Basophils % 0.2 %; Eosinophils # 0.2 10^3/uL (0.0-0.8); Eosinophils % 1.6 %; Hematocrit 45.9 % (42.0-52.0); Hemoglobin 15.2 g/dL (11.7-16.6); Lymphocytes # 2.6 10^3/uL (0.8-4.8); Lymphocytes % 18.7 %; Mean Corpuscular HGB Conc 33.1 g/dL (30.0-36.0); Mean Corpuscular Hemoglobin 28.6 pg (28.0-34.0); Mean Corpuscular Volume 86.3 fL (80-94); Mean Platelet Volume 9.1 fL (7.4-10.4); Monocytes # 1.5 10^3/uL (0.2-0.9); Monocytes % 10.8 %; Neutrophils # 9.31 10^3/uL (1.8-7.7); Neutrophils % 66.6 %; Nucleated Red Blood Cells % 0 %; Platelet Count 304 10^3/cmm (130-400); Red Blood Count 5.32 10^6/uL (4.1-5.3); Red Cell Distribution Width 13.2 % (12.1-15.1)
[2020-11-13 05:58] LABS: D Dimer 0.45 ug/mIFEU (0-0.59)
--- NOTE | 2020-11-13 06:00 | XRR_ITS ---
PROCEDURE INFORMATION: Exam: XR Chest Exam date and time: 11/13/2020 6:14 AM Age: 60 years old Clinical indication: Other: Hypoxia; Patient HX: Covid follow up TECHNIQUE: Imaging protocol: XR of the chest Views: 1 view. COMPARISON: CR XR chest 1V portable [id number] 11/09/2020 5:44 AM FINDINGS: Lungs: Diffuse bilateral interstitial pulmonary infiltrates. Pleural spaces: Unremarkable. No pleural effusion. No pneumothorax. Heart/Mediastinum: Unremarkable. No cardiomegaly. Bones/joints: Unremarkable. XR/XR chest 1V portable [id number] IMPRESSION: Diffuse bilateral pulmonary infiltrates. Infiltrates in the left mid lung zone have improved when compared to previous study.
[2020-11-13 06:03] LABS: Anion Gap 13.2 (5-19); Blood Urea Nitrogen 18 mg/dL (8-23); C Reactive Protein 5.7 mg/L (0.0-4.9); Calcium 8.4 mg/dL (8.5-10.5); Carbon Dioxide 29 mmol/L (22-29); Chloride 97 mmol/L (98-107); Glomerular Filtration Rate 114.3 mL/min (90-130); Glucose 199 mg/dL (65-115); Osmolality Calculated 287 mOsm/kg (285-295); Potassium 4.2 mmol/L (3.5-5.1); Sodium 135 mmol/L (136-145)
[2020-11-13 06:49] LABS: Glucose Point of Care 228 mg/dL (70-110)
[2020-11-13 07:25] VITALS: BP 136/83; PULSE 79; RESP 18; TEMP 36.6; O2SAT 93
[2020-11-13] MEDS: pantoprazole DR 40 mg Tablet PO (07:51)
[2020-11-13] MEDS: ascorbic acid 500 mg Tablet 1000 MG PO (07:51)
[2020-11-13] MEDS: enoxaparin 40 mg/0.4 mL Syringe SUBCUT (07:51)
[2020-11-13] MEDS: cholecalciferol (vitamin D3) 5,000 unit Tablet 5000 UNIT PO (07:52)
[2020-11-13] MEDS: atorvastatin 40 mg Tablet 20 MG PO (07:52)
[2020-11-13] MEDS: dexamethasone 4 mg Tablet 2 MG PO (07:52)
[2020-11-13] MEDS: zinc gluconate 50 mg Tablet PO (07:52)
[2020-11-13] MEDS: HYDROcodone-acetaminophen 5-325 mg Tablet 1 TAB PO (07:59)
[2020-11-13 09:04] VITALS: O2SAT 84; O2SAT 91
[2020-11-13 09:15] LABS: Add Urine Microscopic? NO
[2020-11-13 09:41] LABS: Bilirubin Urine Neg (Negative); Blood Urine Neg (Negative); Glucose Urine UA 2+ (Normal); Ketones Urine Negative (Negative); Leukocyte Esterase Urine Negative (Negative); Nitrate Urine Negative (Negative); Protein Urine Neg (Negative); Specific Gravity, Urine 1.015 (1.005-1.030); Urine Appearance Clear (CLEAR); Urine Color Yellow (Yellow); Urobilinogen Urine Norm (Negative); pH Urine 5 (5-7)
[2020-11-13 11:18] LABS: Glucose Point of Care 408 mg/dL (70-110)
[2020-11-13 11:37] VITALS: BP 156/88; PULSE 94; RESP 18; TEMP 37; O2SAT 91
--- NOTE | 2020-11-13 12:13 | P.DS_ITS ---
Discharge Providers Date of Admission: 11/04/20 05:48 Date of Discharge: November 13, 2020 Attending Provider at Admission: Jose Wilkes MD Attending Provider at Discharge: Vamshi Abel Diagnoses at Discharge Discharge Diagnosis (1) COVID-19: Status: Acute (2) Respiratory failure with hypoxia: Status: Acute Qualifiers: Chronicity: acute Qualified Code(s): J96.01 - Acute respiratory failure with hypoxia Reason for Visit Reason for Visit: abd pain Hospital Course Hospital Course Alen pearl is a 60 year old male who was admitted for hypoxic respiratory failure severe COVID-19 pneumonia came in for assessment of left lower quadrant discomfort which was thought to be secondary to colitis due to COVID-19 (which improved with fluid resuscitation), he showed slow improvement of hypoxic respiratory failure, was requiring 2 L of oxygen as per respiratory therapist assessment on 11/06 however 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 during hospitalization he was also experiencing panic attacks due to recent social stressors such as his COVID-19 infection in his niece who was killed in a car accident. Patient also requesting opioids however his request was not being entertained because of previous history of drug abuse and risk of respiratory depression. Patient state compliant and receptive with our recommendations. He has been asked to continue quarantine for at least 5 to 7 days, and not drive his truck until he is completely weaned off oxygen. All of his questions were answered to his satisfaction. He seemed very enthusiastic and energetic to go back home. Physical Exam Narrative: EXAM NARRATIVE: Very pleasant middle-age male Was saturating well on 2 L nasal cannula just came out of shower, however felt weak after shower and sat in his bed for the interview, despite that he is willing and energetic to go to his home and start working again S1, S2 sinus rhythm no tachycardia Abdomen no tenderness Lower extremity no edema gangrene or ulcer No neurological deficit Discharge Data Data Completed and Pending: Completed Studies During Hospitalization Category Date Time Status CT angio chest w abd pel w con Urge nt Cat Scan 11/04/20 02:53 Completed XR chest 1V giorgio ble [id number] Routine Exams 11/09/20 06:00 Completed XR chest 1V giorgio ble [id number] Routine Exams 11/13/20 06:00 Completed XR chest 1V giorgio ble [id number] Stat Exams 11/04/20 03:22 Completed CV echo complete* [id number] Routine Ultrasound 11/04/20 08:59 Completed Labs from last 24 hours 11/13/20 11/13/20 11/13/20 10:49 09:00 06:43 WBC RBC Hgb Hct MCV MCH MCHC RDW Plt Count MPV Neut % (Auto) Lymph % (Auto) [place] % (Auto) Eos % (Auto) Baso % (Auto) Neut # (Auto) Lymph # (Auto) [place] # (Auto) Eos # (Auto) Baso # (Auto) Nucleated RBC % (a uto) Nucleated RBCs # D-Dimer Sodium Potassium Chloride Carbon Dioxide Anion Gap BUN Creatinine GFR Calculation Glucose POC Glucose 408 H 228 H Calculated Osmolal ity Calcium C-Reactive Protein Urine Color Yellow Urine Appearance Clear Urine pH 5 Ur Specific Gravit y 1.015 Urine Protein Neg Urine Glucose (UA) 2+ Urine Ketones Negative Urine Blood Neg Urine Nitrate Negative Urine Bilirubin Neg Urine Urobilinogen Norm Ur Leukocyte Kandis ase Negative 11/13/20 11/13/20 11/13/20 05:13 05:13 05:13 WBC 14.0 H RBC 5.32 H Hgb 15.2 Hct 45.9 MCV 86.3 MCH 28.6 MCHC 33.1 RDW 13.2 Plt Count 304 MPV 9.1 Neut % (Auto) 66.6 Lymph % (Auto) 18.7 [place] % (Auto) 10.8 Eos % (Auto) 1.6 Baso % (Auto) 0.2 Neut # (Auto) 9.31 H Lymph # (Auto) 2.6 [place] # (Auto) 1.5 H Eos # (Auto) 0.2 Baso # (Auto) 0.0 Nucleated RBC % (a uto) 0 Nucleated RBCs # 0.0 D-Dimer 0.45 Sodium 135 L Potassium 4.2 Chloride 97 L Carbon Dioxide 29 Anion Gap 13.2 BUN 18 Creatinine 0.7 GFR Calculation 114.3 Glucose 199 H POC Glucose Calculated Osmolal ity 287 Calcium 8.4 L C-Reactive Protein 5.7 H Urine Color Urine Appearance Urine pH Ur Specific Gravit y Urine Protein Urine Glucose (UA) Urine Ketones Urine Blood Urine Nitrate Urine Bilirubin Urine Urobilinogen Ur Leukocyte Kandis ase 03/03/2811/12/20 11/12/20 20:46 16:05 12:12 WBC RBC Hgb Hct MCV MCH MCHC RDW Plt Count MPV Neut % (Auto) Lymph % (Auto) [place] % (Auto) Eos % (Auto) Baso % (Auto) Neut # (Auto) Lymph # (Auto) [place] # (Auto) Eos # (Auto) Baso # (Auto) Nucleated RBC % (a uto) Nucleated RBCs # D-Dimer Sodium Potassium Chloride Carbon Dioxide Anion Gap BUN Creatinine GFR Calculation Glucose POC Glucose 455 H 407 H 309 H Calculated Osmolal ity Calcium C-Reactive Protein Urine Color Urine Appearance Urine pH Ur Specific Gravit y Urine Protein Urine Glucose (UA) Urine Ketones Urine Blood Urine Nitrate Urine Bilirubin Urine Urobilinogen Ur Leukocyte Kandis ase Vitals: Last Vital Signs Temp 98.6 F 11/13/20 11:37 Pulse 94 11/13/20 11:37 Resp 18 11/13/20 11:37 BP 156/88 11/13/20 11:37 Pulse Ox 91 11/13/20 11:37 Discharge Plan Discharge Patient Disposition: Home Condition: Stable Prescriptions: New ascorbic acid (vitamin C) [Vitamin C] 500 mg Tablet 1,000 mg PO BID 30 Days Qty: 120 RF: 0 albuterol sulfate [Ventolin HFA] 90 mcg/actuation Hfa Aerosol Inhaler 2 puff inhalation Q4H.RESPIRATORY PRN (Reason: Shortness Of Breath) 3 Days Qty: 2 RF: 1 cholecalciferol (vitamin D3) 125 mcg (5,000 unit) Tablet 5,000 unit PO DAILY 30 Days Qty: 30 RF: 0 pantoprazole 40 mg Tablet,Delayed Release (Dr/Ec) 40 mg PO DAILY@1000 30 Days Qty: 30 RF: 0 atorvastatin 40 mg Tablet 20 mg PO DAILY@1000 30 Days Qty: 30 RF: 0 dexamethasone 4 mg Tablet 6 mg PO DAILY 5 Days Qty: 5 RF: 0 No Action cyclobenzaprine 10 mg tablet 10 mg PO DAILY PRN (Reason: muscle cramps) RF: 0 cetirizine 10 mg tablet 10 mg PO DAILY@1000 RF: 0 meloxicam 15 mg tablet 15 mg PO DAILY@1000 RF: 0 lisinopril 20 mg tablet 20 mg PO BID RF: 0 simvastatin 40 mg tablet 40 mg PO DAILY@1000 RF: 0 trazodone 100 mg tablet 100 mg PO DAILY RF: 0 omeprazole 20 mg capsule,delayed release(DR/EC) 20 mg PO DAILY@1000 RF: 0 albuterol sulfate 90 mcg/actuation HFA aerosol inhaler 2 puff INHALATION Q4H PRN (Reason: Shortness Of Breath) RF: 0 fluticasone propionate 50 mcg/actuation spray,suspension 2 spray INTRANASAL DAILY@1000 RF: 0 Linzess 145 mcg capsule 145 mcg PO DAILY@1000 RF: 0 Trulicity 0.75 mg/0.5 mL pen injector 0.75 mg SUBCUT Q7D RF: 0 Xigduo XR 5-1,000 mg tablet, IR - ER, biphasic 24hr 2 tab PO DAILY@1000 RF: 0 Discharge Orders: Discharge Order (Routine); Ordered 11/13/20 Ordered By: Jose Wilkes Other Ambulatory Orders: DME: Oxygen (Order) Location: None Selected Ordered By: Vamshi Abel Discharge Diet: Advance as tolerated Discharge Activity: Resume usual activity Patient Instructions: Using Oxygen at Home (DC), Hypoxia (GEN), Pneumonia (DC), Pneumonia Stoplight Activity Restrictions/Additional Instructions: Continue steroids for next 5 days, wean off your cell from oxygen gradually and keep monitoring of pulse ox if you are not requiring oxygen and pulse ox showing saturation 92 to 94%, reevaluate after 6 minutes of walking test, if O2 saturation is holding up around 92 to 94% that is a good sign and you can wean off yourself from oxygen, 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
--- NOTE | 2020-11-13 13:52 | PC.NURSE ---
meds sent to [facility], Shavonne at Pharmacy said patient as [place] insurance and she can fax the pharmacy of his chose so his insurance will pay. Cat Scan Tech asked patient want pharmacy he uses and relayed it to Shavonne in Pharmacy.
--- NOTE | 2020-11-13 15:03 | PC.NURSE ---
discharge instructions given to patient and patient verbalized understanding of instructions. patient's ride is here. we are waiting on [facility] to deliver oxygen.
--- NOTE | 2020-11-13 15:30 | PC.NURSE ---
home oxygen delivered and patient educated on equipment.
[2020-11-13 15:32] VITALS: BP 156/88; PULSE 94; RESP 18; TEMP 37; O2SAT 91
== END 2020-11-13 15:33 | disposition home or self-care (01) | DRG 177 ==
LOC: ER 05:55 → ICU 06:15 → MEDSURG 06:21
PROVIDERS: Family Medicine; Hospitalist; Internal Medicine; Admitting Provider Internal Medicine; Emergency Provider Emergency Medicine; Visit Provider Internal Medicine
DX: U07.1 COVID-19 (principal); J12.82 Pneumonia due to coronavirus disease 2019; J96.01 Acute respiratory failure with hypoxia; I10 Essential (primary) hypertension; E11.9 Type 2 diabetes mellitus without complications; I51.7 Cardiomegaly; F41.9 Anxiety disorder, unspecified; K52.89 Other specified noninfective gastroenteritis and colitis; Z79.4 Long term (current) use of insulin; Z63.4 Disappearance and death of family member
CPT/HCPCS: 36415; 36416; 36600; 71045; 71275; 74177; 80048; 80053; 81001; 81003; 82728; 82803; 82962; 83605; 83615; 83690; 83880; 84145; 84484; 85025; 85378; 86140; 87426; 93005; 93306; 94640; 94760; 96361; 96372; 96374; 96375; 99285; J1100; J1170; J1650; J1815; J1885; J2060; J2270; J3535; J7030; J8540; Q9967